=== PATIENT | male | born 1955 | race Caucasian/White ===

== ENCOUNTER 2021-09-09 07:54 | Outpatient (CLI) | payer OTHER, SELFPAY ==
--- NOTE | ~2021-09-09 | XR_ITS ---
XR abdomen/kub 1V DATE: 09/09/2021 08:13 INDICATION: Kidney calculus TECHNIQUE: AP projection, 2 views COMPARISON: None FINDINGS: An approximately 11 cm mass overlies the lower pole left kidney, possibly a large left lucian l cyst. Consider ultrasound or CT examination for further evaluation. Opacity 5 mm calcification overlying the lower pole right kidney, likely a lower pole right renal mikey cified calculus. Surgical clips, right upper quadrant, consistent with cholecystectomy. The psoas shadows are intact. No evidence of bowel obstruction. Included skeletal structures are unremarkable. IMPRESSION: Probable 5 mm lower pole right renal calcified calculus 11 cm mass overlying left mid abdomen, very possibly a large lower pole left renal cyst. Consider ult rasound or CT imaging Status post cholecystectomy Reviewed, dictated and finalized at [facility]. Reviewed, dictated and finalized at location [facility]. IMPRESSION: Probable 5 mm lower pole right renal calcified calculus 11 cm mass overlying left mid abdomen, very possibly a large lower pole left re nal cyst. Consider ultrasound or CT imaging Status post cholecystectomy
== END 2021-09-09 07:55 | disposition home or self-care (01) ==
LOC: ANHIMG 07:58
PROVIDERS: PCP Internal Medicine; Visit Provider Urology
DX: N20.0 Calculus of kidney (principal); Z90.49 Acquired absence of other specified parts of digestive tract
CPT/HCPCS: 74018

== ENCOUNTER 2022-09-07 10:00 | Outpatient (RCR) | payer OTHER, SELFPAY ==
--- NOTE | 2022-08-10 14:57 | OPREHPOC ---
Outpatient Therapy Plan of Care This is a Multidisciplinary Plan of Care that may contain components documented by all disciplines (PT, OT, and ST.) PT Problem 1 PT Problem #1 Knowledge Deficit PT Goal 1 Goal Independent with HEP Target Visit 6 PT Problem 2 PT Problem #2 Impaired Sensation PT Goal 1 Goal centralization of symptoms to the back Target Visit 6 PT Problem 3 PT Problem #3 Impaired Flexibility PT Goal 1 Goal RANJANA HS -25 degrees Target Visit 6 PT Problem 4 PT Problem #4 Impaired Strength PT Goal 1 Goal able to hold a plank with good form for 30 seconds Target Visit 6
--- NOTE | 2022-08-10 14:57 | PTOPEVAL1 ---
Assessment and note entered by Sagar Alvarado, PT Evaluation Information Diagnosis Lumbar radiculopathy Onset 27 years ago exacerbation 1 week ago Subjective Information Patient reports having a L1 fracture from an 8 foot drop 27 years ago resulting in him wearing a brace for 2 months, but no surgical interventions. Patient has occasional exacerbations of the back injury causing radiating symptoms going down the RLE usually only to the lateral mid thigh, but last week was having shooting pain going down to mid calf. Patient seen by doctor and given a steroid dose pack which has helped. Is having an MRI tonight to check for degenerative disc disease and or possible impingement. Patient usually has stiffness in the back first thing in the morning, but loosens up as he walks around and moves. Reported Pain Level Pain Score 0: Self Report Assessment PT Clinical Summary Neo is a 66 year old male coming into the clinic with a diagnosis of lumbar radiculopathy. He has tightness throughout the lumbar and thoracic region. Physical therapy will work with the patient on stretching and core progressions. Having MRI tonight which results my change direction of therapy. Manual and modalities as needed for pain. Plan of Care Interventions Electrical Stimulation,Gait Training,Hot Pack/Cold Pack,Manual Therapy,Mechanical Traction,Neuro Re- education,Patient/Caregiver Education,Therapeutic Activities,Therapeutic Exercise,Ultrasound PT Services Indicated Yes Treatment Frequency and 1-2x/wk for 4 weeks Duration These treatments will address the objective and functional deficits as defined above. The patient will be advanced safely and appropriately in order for the patient to progress towards his/her prior level of function. Additional exercises will be introduced and as well as a comprehensive home exercise program upon discharge, if needed, ?to ensure carryover of functional gains achieved in the clinic. This treatment plan has been reviewed and agreement upon by the patient.
--- NOTE | 2022-09-07 11:43 | PTOPDC ---
Assessment and note entered by Sagar Alvarado, PT Evaluation Information Assessment Status Discharge Diagnosis Lumbar radiculopathy Onset 27 years ago exacerbation 6 week ago Subjective Information Patient reports no pain going down the leg since going on the [employer] trip to [place]. Still has some numbness on the R outer thigh. Is seeing his primary doctor in about two weeks and has an appointment with a neurosurgeon on October 11. Patient reports besides the trip to [place] his has been faithful with HEP. Reported Pain Level Pain Score 0: Self Report Assessment PT Clinical Summary Neo is a 66 year old male coming into the clinic with a diagnosis of Lumbar Radiculopathy. He was evaluated on 08/10/22 and attended 7 sessions. He has met his strength goal, but not his flexibility or centralization goal. Patient is okay with being discharged from formal physical therapy and continue with just his HEP. Reports no questions about plan of care or HEP. Plan of Care PT Services Indicated No
== END 2022-09-08 13:20 | disposition home or self-care (01) ==
LOC: ANHPT 10:00
PROVIDERS: PCP Internal Medicine; Visit Provider Internal Medicine
DX: M54.16 Radiculopathy, lumbar region (principal)
CPT/HCPCS: 97110; 97112; 97140; 97161

== ENCOUNTER 2023-01-22 05:44 | Emergency (ER) | payer MEDICARE, SELFPAY ==
[2023-01-22] VITALS (7 sets, daily range): BP systolic 130–163; BP diastolic 77–87; PULSE 87–112; RESP 18–22; TEMP 36.3; O2SAT 95–100
--- NOTE | ~2023-01-22 | XR_ITS ---
Lumbosacral Spine: AP and lateral views Clinical History: Pain Findings: The normal lordotic curve is maintained. There is moderate compression fracture of L1, and minimal anterior wedging deformities of T12 and L2. There is 4 mm retrolisthesis of L2 over L3. There is moderate to severe facet joint arthropathy throughout the lumbar spine. There is minimal degenera tive disc change. The intervertebral disc spaces are preserved. The sacroiliac joints are normally o utlined. Impression: Moderate L1 compression fracture and mild T12 and L2 compression fractures, somewhat age indeterminat e, though likely chronic. 4 mm retrolisthesis of L2 over L3. Extensive facet joint degenerative change of the lumbar spine. Reviewed, dictated and finalized at location [facility]. HALMIC LENS INSPECTOR Impression: Moderate L1 compression fracture and mild T12 and L2 compression fractures, bong ewhat age indeterminate, though likely chronic. 4 mm retrolisthesis of L2 over L3. Extensive facet joint degenerative change of the lumbar spine.
--- NOTE | ~2023-01-22 | XR_ITS ---
AP view of the pelvis and AP and lateral views of the right hip Clinical history: Pain Findings: No acute fracture or dislocation is seen. Osseous alignment is anatomic. Bilateral hip and SI joint spaces are preserved. Soft tissues are unremarkable. Impression: No significant abnormality is seen. Reviewed, dictated and finalized at [facility]. PHYSICAL SCIENTIST Impression: No significant abnormality is seen.
--- NOTE | 2023-01-22 07:08 | PC.NURSE ---
Report given to CECILIA Anthony
[2023-01-22] MEDS: KETOROLAC 30 MG/ML VIAL (*BKC) IV PUSH (07:31)
[2023-01-22] MEDS: SODIUM CHLORIDE 0.9% IV 1,000 ML 999 ML IV CONT (07:31)
[2023-01-22] MEDS: diazePAM INJ (*CRX) 10 MG/2 ML SYRINGE 5 MG IV PUSH (07:32)
--- NOTE | 2023-01-22 07:35 | ED.EXTPRO ---
HPI - Extremity Problem General Chief complaint: Extremity Problem,Nontraumatic Stated complaint: LEFT HIP PAIN - NONTRAUMATIC Time Seen by Provider: 01/22/23 06:59 History of Present Illness HPI Narrative: Patient is a 67-year-old male who presents ER with right-sided hip pain. Patient has been having pain over the last couple weeks. He had a steroid injection by interventional pain management 3 days ago. He was supposed to stay off his leg for the weekend however he decided to go work at [employer] and unsure. Due to his increased activity he woke up early this morning with severe pain in his right leg radiating down to the foot. No numbness. Denies saddle anesthesia. Reports chronic weak stream due to BPH. No fevers or chills or sweats. No redness or swelling to the area. No direct trauma. Related Data Home Medications Medication Instructions Recorded Confirmed aspirin 81 mg tablet,delayed 81 mg PO DAILY 02/27/22 02/27/22 release (Adult Aspirin Regimen) methylcellulose (laxative) 500 mg 500 mg PO BID 02/27/22 02/27/22 tablet (Fiber Laxative (methylcellulose)) olmesartan 20 mg tablet 20 mg PO DAILY 02/27/22 02/27/22 pantoprazole 40 mg tablet,delayed 40 mg PO QAM 02/27/22 02/27/22 release potassium citrate 15 mEq (1,620 15 meq PO BID 02/27/22 02/27/22 mg) tablet,extended release simvastatin 40 mg tablet 40 mg PO DAILY 02/27/22 02/27/22 tadalafil 5 mg tablet 5 mg PO DAILY 02/27/22 02/27/22 Allergies Allergy/AdvReac Type Severity Reaction Status Date / Time No Known Allergies Allergy Unverified 02/27/22 12:53 Review of Systems Constitutional: Constitutional: Denies chills and Denies fever(s) Musculoskeletal: Musculoskeletal: Denies back pain, Reports arthralgias, Denies joint swelling and Denies muscle cramps Integumentary/Breasts: Skin/Breast: Denies erythema and Denies rash Neurologic: Denies focal weakness, Denies numbness and Denies weakness PMFSH Past Medical History Medical History (Updated 01/22/23 @ 09:48 by Dave Cool MD) Hypertension Surgical History Surgical History (Updated 01/22/23 @ 07:42 by Dave Cool MD) No pertinent past surgical history Family History Family History Father Hypertension Heart disease Social History Social History (Updated 02/27/22 @ 12:55 by Pau Kee CMA) Smoking status: Never smoker Alcohol intake: never Substance use: never Lack of Transportation: No Lack of Food: Never True Current Housing: I Have Housing Concerned About Future Housing: No Difficulty Paying Gas/Electric Bills: No Difficulty Paying for Meds: No Currently Unemployed: No Education: Bachelor's Degree Difficulty w/ Childcare or Family Care: No Exam Narrative: GENERAL: Well-appearing, well-nourished, and in no acute distress. HEAD: Normocephalic, atraumatic. ENT: Mucous membranes moist. CHEST: Clear to auscultation. No respiratory distress. HEART: Regular rate and rhythm. Normal peripheral pulses. EXTREMITIES: Normal range of motion. No edema. Pain at the right hip with range of motion which is not limited. Neurovascular intact. SKIN: Warm, dry, no rash. NEURO: Alert and oriented x3. PSYCH: Normal mood and affect. Course Course Emergency Course: Patient with difficulty ambulating after Valium and Toradol due to pain and unable to sit. Patient then received morphine and pain went down to 3/10. Discharged with Medrol Dosepak as well as cyclobenzaprine and some Maud for breakthrough pain. Needs to follow-up with PCP and take it easy. Vital Signs Vital signs: Vital Signs Temperature 97.4 F L 01/22/23 05:50 Pulse Rate 112 H 01/22/23 05:50 Respiratory Rate 22 H 01/22/23 05:50 Blood Pressure 146/84 H 01/22/23 05:50 Pulse Oximetry 100 01/22/23 05:50 Temperature 97.4 F L 01/22/23 05:50 Pulse Rate 101 H 01/22/23 09:34 Re
[2023-01-22] MEDS: MORPHINE SULFATE (*CRX) 4 MG/ML INJ IV PUSH (08:52)
== END 2023-01-22 10:03 | disposition home or self-care (01) ==
PROVIDERS: Emergency Provider Emergency Medicine; PCP Internal Medicine
DX: M25.551 Pain in right hip (principal); I10 Essential (primary) hypertension; N40.1 Benign prostatic hyperplasia with lower urinary tract symptoms; R39.12 Poor urinary stream; Z79.82 Long term (current) use of aspirin; M48.55XA Collapsed vertebra, not elsewhere classified, thoracolumbar region, initial encounter for fracture
CPT/HCPCS: 72100; 73502; 96361; 96374; 96375; 99284; J1885; J2270; J3360; J7030

== ENCOUNTER 2023-01-31 10:15 | Outpatient (CLI) | payer MEDICARE, SELFPAY ==
--- NOTE | ~2023-01-31 | CT_ITS ---
EXAMINATION: CT lumbar spine wo con DATE: 01/31/2023 10:44 INDICATION: Spinal stenosis of the lumbar region with neurogenic claudication. TECHNIQUE: Computed tomography (CT) of the lumbar spine was performed without intravenous contrast. A utomated exposure control and iterative reconstruction technique were employed. The dose-length produ ct was 1330.37 mGy-cm. COMPARISON: Lumbar spine radiographs 01/22/2023 FINDINGS: There are changes of cholecystectomy. Partially visualized is a cyst in left kidney measuri ng greater than 8 cm. There is 7 degrees dextrocurvature of thoracolumbar spine. There is 3 mm retrol isthesis of L2 on L3. There is mild chronic anterior wedging of T11-L2 vertebral bodies. There are br idging endplate osteophytes from T10 to L1, consistent with diffuse idiopathic skeletal hyperostosis (DISH). There is mildly decreased disc height at L1-L2 and moderately decreased disc height at L2-L3, L3-L4, L4-L5, and L5-S1. 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 The following disc levels are specifica lly discussed: L1-L2: The disc is bulging. There is severe bilateral facet joint osteoarthritis. There is mild bilat eral neural foraminal stenosis. There is no central canal stenosis. L2-L3: The disc is bulging. There is severe bilateral facet joint osteoarthritis. There is moderate b ilateral neural foraminal stenosis. There is mild central canal stenosis. L3-L4: The disc is bulging. There is severe right and mild left facet joint osteoarthritis. There is moderate bilateral neural foraminal stenosis. There is mild central canal stenosis. L4-L5: The disc is bulging. There is severe bilateral facet joint osteoarthritis. There is moderate b ilateral neural foraminal stenosis. There is moderate central canal stenosis. L5-S1: The disc is bulging. There is severe bilateral facet joint osteoarthritis. There is mild bilat eral neural foraminal stenosis. There is mild central canal stenosis. IMPRESSION: 1. Moderate lumbar spondylosis. Reviewed, dictated and finalized at location [facility]. R INSTALLER
== END 2023-01-31 10:16 | disposition home or self-care (01) ==
PROVIDERS: PCP Internal Medicine
DX: M48.062 Spinal stenosis, lumbar region with neurogenic claudication (principal); M43.06 Spondylolysis, lumbar region
CPT/HCPCS: 72131

== ENCOUNTER 2023-05-01 10:01 | Inpatient (IN) | payer MEDICARE, SELFPAY ==
--- NOTE | ~2023-05-01 | CT_ITS ---
EXAMINATION: CT abdomen pelvis w con DATE: 05/01/2023 19:10 INDICATION: Generalized abdominal pain. Nausea and vomiting. TECHNIQUE: Computed tomography (CT) of the abdomen and pelvis was performed with 100 mL Omnipaque 350 intravenous contrast. Automated exposure control and iterative reconstruction technique were employe d. The dose-length product was 1460.64 mGy-cm. COMPARISON: None. FINDINGS: The visualized portions of the lung bases demonstrate mild atelectasis. No pleural effusion . The heart size is normal. No pericardial effusion. There is diffuse hepatic steatosis. There are ch anges of cholecystectomy. The spleen, pancreas, and adrenal glands are normal. There are cysts in the kidneys measuring up to 10.1 cm on the left. There is a 3 mm stone in left kidney. The prostate is s everely enlarged. There is diverticulosis of the colon without evidence of diverticulitis. The append ix is fluid-filled and contains fecaliths. The appendix is dilated to 17 mm and demonstrates surround ing fat stranding, consistent with appendicitis. There is mild aortic atherosclerosis. There is a sma ll sliding hiatal hernia. There are no pathologically enlarged lymph nodes. There is no free intraper itoneal fluid. There is mild chronic anterior wedging of multiple vertebral bodies. There is moderate lumbar spondylosis. There are bridging endplate osteophytes at multiple levels in the spine, consist ent with diffuse idiopathic skeletal hyperostosis (DISH). IMPRESSION: 1. Acute appendicitis. Reviewed, dictated and finalized at location E. STRIAL GREEN SYSTEMS DESIGNER IMPRESSION: 1. Acute appendicitis.
[2023-05-01 10:04] VITALS: BP 124/66; PULSE 104; RESP 16; TEMP 36.8; O2SAT 100
--- NOTE | 2023-05-01 10:07 | ECG_ITS ---
Measurements Intervals Bernard Rate: 100 P: 18 MA: 184 QRS: 20 QRSD: 87 T: 22 QT: 321 QTc: 414 Interpretive Statements SINUS TACHYCARDIA POSSIBLE LEFT ATRIAL ENLARGEMENT [-0.1mV P WAVE IN V1/V2] NO PREVIOUS ECG AVAILABLE FOR COMPARISON Electronically Signed On 05-01-2023 15:45:35 HAND FLATWORK FINISHER by Aleida Nj M.D.
[2023-05-01 15:02] VITALS: BP 117/67; PULSE 105; RESP 18; O2SAT 96
--- NOTE | 2023-05-01 15:10 | ED.ABDPAIN ---
HPI - Abdominal Pain General Chief Complaint: Abdominal Pain <Katina Peter PA-C - Last Filed: 05/02/23 09:45> Stated Complaint: influenza A positive, abd pain <Katina Peter PA-C - Last Filed: 05/02/23 09:45> Time Seen by Provider: 05/01/23 15:00 <Katina Peter PA-C - Last Filed: 05/02/23 09:45> Focused HPI: This is a 67 year old male that presents to the ER for abdominal pain. Ongoing since yesterday. Associated with fever, chills, vomiting and diarrhea. He was seen at Urgent care and diagnosed with influenza. Sent to the ER for further evaluation of his abdominal pain. GENERAL: Well-appearing, well-nourished, and in no acute distress. HEAD: Normocephalic, atraumatic. CHEST: Clear to auscultation. No respiratory distress. HEART: Regular rate and rhythm. GASTROINTESTINAL: Tender to palpation in the mid abdomen, without guarding NEURO: Alert and oriented x3. Patient screened in triage and initial orders placed. Additional care and disposition to be based upon diagnostic testing and treatment. <Katina Peter PA-C - Last Filed: 05/02/23 09:45> History of Present Illness HPI narrative: 67yo male with PMH hypertension and kidney stones. Patient had diarrheal stool on Sunday and Sunday. No stools since then (has not returned to normal caliber stools). When they were occurring they were non-bloody. Starting last night at 9pm, he developed chills and shaking in addition to non bloody emesis. In addition he has whole body aches. He is also having upper abdominal pain. He was seen at urgent care and diagnosed with Influenza A but advised to come to the ED due to the degree of abdominal distension and tenderness he had in the lower quadrants. He also had chest pain/tightness but only when vomiting. No significant cardiac history/doesn't follow with a interactive media specialist. He did have a heart catheterization performed years ago that was reportedly normal. No stents. Urgent care give him Theraflu x1 and gave a dose of anti-nausea medication. He had a fever of 100.4F this morning for which he took Tylenol but that was his last dose. No prior abdominal surgeries. <Agnes aCsas MD - Last Filed: 05/02/23 00:59> Related Data Home Medications: Home Medications Medication Instructions Recorded Confirmed aspirin 81 mg tablet,delayed 81 mg PO DAILY 02/27/22 05/01/23 release (Adult Aspirin Regimen) methylcellulose (laxative) 500 mg 500 mg PO BID 02/27/22 05/01/23 tablet (Fiber Laxative (methylcellulose)) olmesartan 20 mg tablet 20 mg PO DAILY 02/27/22 05/02/23 pantoprazole 40 mg tablet,delayed 40 mg PO QAM 02/27/22 05/01/23 release simvastatin 40 mg tablet 40 mg PO DAILY 02/27/22 05/01/23 tadalafil 5 mg tablet 5 mg PO DAILY 02/27/22 05/01/23 <Katina Peter PA-C - Last Filed: 05/02/23 09:45> Allergies/Adverse Reactions: Allergies Allergy/AdvReac Type Severity Reaction Status Date / Time No Known Allergies Allergy Unverified 05/01/23 15:30 <Katina Peter PA-C - Last Filed: 05/02/23 09:45> Review of Systems Review of Systems: CONSTITUTIONAL: Reports fever, chills RESPIRATORY: Denies cough GASTROINTESTINAL: Reports abdominal pain, nausea, vomiting, and diarrhea. <Katina Peter PA-C - Last Filed: 05/02/23 09:45> All systems reviewed & are unremarkable except as noted in HPI and below <Katina Peter PA-C - Last Filed: 05/02/23 09:45> [facility] Past Medical History Medical History: Medical History Hyperlipidemia Hypertension Kidney stones <Katina Peter PA-C - Last Filed: 05/02/23 09:45> Surgical History Surgical History: Surgical History History of laparoscopic cholecystectomy <Katina Peter PA-C - Last Filed: 05/02/23 09:45> Family History Family History: Family History (Reviewed 05/02/23 @ 09:38 by Hattie Cespedes
[2023-05-01] MEDS: PANTOPRAZOLE SODIUM IV 40 MG VIAL IV PUSH (15:30)
[2023-05-01] MEDS: SODIUM CHLORIDE 0.9% IV 500 ML 999 ML IV CONT (15:30)
[2023-05-01 15:37] LABS: Hemoglobin 13.8 g/dL (14.0-18.0); Mean Corpuscular HGB Conc 32.1 g/dl (32-36); Mean Corpuscular Hemoglobin 28.8 pg (26-34); Mean Corpuscular Volume 89.6 fl (80-100); Mean Platelet Volume 10.6 fl (7.4-10.4); Platelet Count Result 256 k/mm3 (150-375); Red Cell Distribution Width 13.8 % (11.5-14.5); White Blood Count 16.1 K/mm3 (4.5-10.0)
[2023-05-01 15:44] LABS: Appearance Urine Clear (Clear); Bacteria Urine None Seen /hpf; Bilirubin Urine 1+ (Negative); Blood Urine Trace (Negative); Color Urine Dark Yellow (Yellow); Glucose Urine UA Negative (Negative); Ketones Urine Trace mg/dL (Negative); Leukocyte Esterase Ur Negative LEU/UL (Negative); Nitrate Urine Negative (Negative); Protein Urine Trace mg/dL (Negative); Specific Grav Ur 1.024 (1.001-1.035); Squamous Epithelial Cell Urine None seen /hpf (Few); WBC Urine 0-5 /hpf; pH Urine 5.5 (5.0-9.0)
[2023-05-01 15:45] LABS: Add Urine Microscopic? YES
[2023-05-01 16:01] LABS: Band Neutrophils Percent 16 % (0-6); Monocytes Absolute Manual 0.32 K/mm3 (0.1-0.90); Monocytes Percent Manual 2 % (3-9); Neutrophils Absolute Manual 14.97 K/mm3 (1.3-6.7); Neutrophils Percent Manual 77 % (46-73); Platelet Estimate Adequate (Adequate); Schistocytes None Seen (NORMAL); Total Cells Counted 100
--- NOTE | 2023-05-01 17:40 | ED.ABDPAIN ---
HPI - Abdominal Pain General Chief Complaint: Abdominal Pain Stated Complaint: influenza A positive, abd pain Time Seen by Provider: 05/01/23 15:00 Related Data Home Medications Medication Instructions Recorded Confirmed aspirin 81 mg tablet,delayed 81 mg PO DAILY 02/27/22 05/01/23 release (Adult Aspirin Regimen) methylcellulose (laxative) 500 mg 500 mg PO BID 02/27/22 05/01/23 tablet (Fiber Laxative (methylcellulose)) olmesartan 20 mg tablet 20 mg PO DAILY 02/27/22 02/27/22 pantoprazole 40 mg tablet,delayed 40 mg PO QAM 02/27/22 05/01/23 release simvastatin 40 mg tablet 40 mg PO DAILY 02/27/22 05/01/23 tadalafil 5 mg tablet 5 mg PO DAILY 02/27/22 05/01/23 Allergies Allergy/AdvReac Type Severity Reaction Status Date / Time No Known Allergies Allergy Unverified 05/01/23 15:30 [facility] Past Medical History Medical History Hypertension Kidney stones Surgical History Surgical History (Updated 01/22/23 @ 07:42 by Dave Cool MD) No pertinent past surgical history Family History Family History Father Hypertension Heart disease Social History Social History (Updated 02/27/22 @ 12:55 by Pau Kee CMA) Smoking status: Never smoker Alcohol intake: never Substance use: never Substance use type: does not use Do You Feel Safe in your Home?: Yes Lack of Transportation: No Lack of Food: Never True Current Housing: I Have Housing Concerned About Future Housing: No Difficulty Paying Gas/Electric Bills: No Difficulty Paying for Meds: No Currently Unemployed: No Education: High School Diploma/GED Difficulty w/ Childcare or Family Care: No Spiritual care concerns: No Exam Narrative: GENERAL: Well-appearing, well-nourished, and in no acute distress. HEAD: Normocephalic, atraumatic. EYES: Non injected, non icteric ENT: Nares clear, no rhinorrhea or epistaxis. NECK: Supple. CHEST: Clear to auscultation. No respiratory distress. HEART: Regular rate and rhythm. . ABDOMEN: Soft, nondistended. EXTREMITIES: Normal range of motion. No edema. SKIN: Warm, dry, no rash. NEURO: No focal deficits. Alert and oriented x3. PSYCH: Normal mood and affect. Course Vital Signs Vital signs: Vital Signs Temperature 98.3 F 05/01/23 10:04 Pulse Rate 104 H 05/01/23 10:04 Respiratory Rate 16 05/01/23 10:04 Blood Pressure 124/66 05/01/23 10:04 Pulse Oximetry 100 05/01/23 10:04 Oxygen Delivery Room Air 05/01/23 10:04 Temperature 99.4 F 05/01/23 21:20 Pulse Rate 114 H 05/01/23 21:20 Respiratory Rate 20 05/01/23 21:20 Blood Pressure 128/71 05/01/23 21:20 Pulse Oximetry 94 05/01/23 21:20 Oxygen Delivery Room Air 05/01/23 15:02 MDM - Abdominal Pain Lab Data 05/01/23 15:21 05/01/23 18:06 Labs: Lab Results 05/01/23 05/01/23 05/01/23 Range/Units 15:21 18:06 19:40 WBC 16.1 H (4.5-10.0) K/mm3 RBC 4.80 (4.6-6.20) M/mm3 Hgb 13.8 L (14.0-18.0) g/dL Hct 43.0 (42.0-52.0) % MCV 89.6 (80-100) fl MCH 28.8 (26-34) pg MCHC 32.1 (32-36) g/dl RDW 13.8 (11.5-14.5) % Plt Count 256 (150-375) k/mm3 MPV 10.6 H (7.4-10.4) fl Immature Gran % (Auto) Not Reportable Neut % (Auto) Not Reportable Lymph % (Auto) Not Reportable Gordon % (Auto) Not Reportable Eos % (Auto) Not Reportable Baso % (Auto) Not Reportable Lymph # (Auto) Not Reportable Gordon # (Auto) Not Reportable Eos # (Auto) Not Reportable Baso # (Auto) Not Reportable Abs Immat Gran (auto) Not Reportable Absolute Neuts (auto) Not Reportable Absolute Nucleated RBC Not Reportable Total Counted 100 Neutrophils % (Manual) 77 H (46-73) % Band Neutrophils % 16 H (0-6) % Lymphocytes % (Manual) 5.0 L (18-44
[2023-05-01] MEDS: SODIUM CHLORIDE 0.9% IV 1,000 ML 999 ML IV CONT (18:09)
[2023-05-01] MEDS: ONDANSETRON INJ 4 MG/2 ML VIAL IV PUSH ×2 (18:09→20:21)
[2023-05-01] MEDS: MORPHINE SULFATE (*CRX) 4 MG/ML INJ IV PUSH (18:10)
[2023-05-01 18:31] LABS: Alanine Aminotransferase 45 U/L (6-50); Albumin Level 4.3 g/dL (3.5-5.1); Alkaline Phosphatase 83 U/L (38-126); Anion Gap 5 mmol/L (8-16); Aspartate Amino Transferase 49 U/L (17-59); Bilirubin,Total 1.5 mg/dL (0.2-1.3); Blood Urea Nitrogen 25 mg/dL (9-20); Calcium 9.1 mg/dL (8.4-10.2); Carbon Dioxide 30 mmol/L (22-30); Chloride 102 mmol/L (98-107); Estimated CRCL calculation 70 ml/min; Estimated Glomerular Filt Rate > 60; Glucose 125 mg/dL (65-110); Lipase 49 U/L (23-300); Sodium 137 mmol/L (137-145)
[2023-05-01 18:35] VITALS: BP 132/72; PULSE 108; RESP 17; O2SAT 97
[2023-05-01 18:46] LABS: Troponin I < 0.012 ng/mL (0.000-0.034)
[2023-05-01 18:53] LABS: Magnesium 1.9 mg/dL (1.6-2.3)
[2023-05-01] MEDS: LACTATED RINGERS 1,000 ML 125 ML IV CONT (20:12)
[2023-05-01] MEDS: PIPERACILLIN/TAZ 4.5G/NS 100ML 4.5 GM/100 ML BAG IVPB (20:13)
[2023-05-01 20:20] LABS: Influenza A QL RT-PCR Negative (Negative); Influenza B QL RT-PCR Negative (Negative); RSV RNA, RT-PCR Negative (Negative); SARS-CoV-2 RNA PCR Negative (Negative)
[2023-05-01] MEDS: ACETAMINOPHEN 325 MG TABLET 650 MG PO (20:20)
[2023-05-01] MEDS: HYDROcodone/acetaminophen (*CRX) 5-325 MG TABLET 1 TAB PO (20:20)
[2023-05-01 20:28] VITALS: TEMP 37.3
[2023-05-01 21:20] VITALS: BP 128/71; PULSE 114; RESP 20; TEMP 37.4; O2SAT 94
[2023-05-01 21:34] VITALS: BMI 35.6
[2023-05-02] VITALS (12 sets, daily range): BP systolic 113–160; BP diastolic 70–90; PULSE 86–110; RESP 12–94; TEMP 36.4–37.5; O2SAT 93–100
--- NOTE | 2023-05-02 00:56 | ADMGEN ---
This patient, eNo Montesinos, was admitted to [facility] Surg Room 303-01. Patient/family oriented to hospital policies and general routines including ID bracelet, bed and alarms, visiting hours, pain management, procedures, bathroom and other care routines, personal items, smoking policy, room service/diet, and visiting hours. Information on how to activate the Rapid Response Team has been discussed. Patient/Family are encouraged to report perceived risks to care and to ask questions if they do not understand what they are told or what they should do.
[2023-05-02] MEDS: HYDROcodone/acetaminophen (*CRX) 5-325 MG TABLET 1 TAB PO ×2 (01:00→20:11)
--- NOTE | 2023-05-02 09:37 | PM.IMHP ---
H&P: HPI History of Present Illness Date/Time: 05/02/23 09:37 Chief Complaint: Abdominal pain, vomiting Narrative: This is a 67-year-old man who was admitted for acute appendicitis. He reports having diarrhea three days ago (Sunday) and then developing nausea, vomiting, chills, and abdominal pain the following day (Sunday, 2 days ago). He describes his pain as cramping and generalized pointing to his central abdomen. He feels like his pain has become more severe across his lower abdomen. He went to an urgent care yesterday and reportedly tested positive for Influenza. Due to his abdominal pain and distention, he was referred to the ER for further evaluation. In the ER, labs significant for a WBC count 16,000. CT showed evidence of acute appendicitis, no evidence of perforation or abscess. There were noted to be fecaliths in the appendix. He was admitted and made NPO. Started on IV fluids. Given one dose of IV Zosyn in the ER. The patient is now seen on the medical floor. He is comfortable and is not requiring any analgesics this morning. He had one [place] last night for his abdominal pain. His only previous abdominal surgery was a laparoscopic cholecystectomy. Review of Systems Review of Systems: All systems reviewed & are unremarkable except as noted in HPI and below PMFSH Past Medical History Medical History (Updated 05/02/23 @ 09:49 by MÓNICA Meraz) Hyperlipidemia Hypertension Kidney stones Lumbar radiculopathy Surgical History Surgical History History of laparoscopic cholecystectomy Family History Family History Father Hypertension Heart disease Social History Social History Smoking status: Never smoker Alcohol intake: never Substance use: never Substance use type: does not use Do You Feel Safe in your Home?: Yes Lack of Transportation: No Lack of Food: Never True Current Housing: I Have Housing Concerned About Future Housing: No Difficulty Paying Gas/Electric Bills: No Difficulty Paying for Meds: No Currently Unemployed: No Education: High School Diploma/GED Difficulty w/ Childcare or Family Care: No Spiritual care concerns: No Meds Home Medications and Allergies Home Medications Medication Instructions Recorded Confirmed Type aspirin 81 mg tablet,delayed 81 mg PO DAILY 02/27/22 05/01/23 History release (Adult Aspirin Regimen) methylcellulose (laxative) 500 mg 500 mg PO BID 02/27/22 05/01/23 History tablet (Fiber Laxative (methylcellulose)) olmesartan 20 mg tablet 20 mg PO DAILY 02/27/22 05/02/23 History pantoprazole 40 mg tablet,delayed 40 mg PO QAM 02/27/22 05/01/23 History release simvastatin 40 mg tablet 40 mg PO DAILY 02/27/22 05/01/23 History tadalafil 5 mg tablet 5 mg PO DAILY 02/27/22 05/01/23 History azelastine 137 mcg (0.1 %) nasal See Rx Instructions .Route 07/19/22 05/01/23 Rx spray aerosol .COMPLEX #30 mL hydrocodone 5 mg-acetaminophen 325 1 tablet PO Q6H PRN pain #12 tabs 01/22/23 05/01/23 Rx mg tablet methylprednisolone 4 mg tablets in See Rx Instructions PO .COMPLEX 01/22/23 05/01/23 Rx a dose pack (Medrol (Murray)) #21 ea Allergies Allergy/AdvReac Type Severity Reaction Status Date / Time No Known Allergies Allergy Unverified 05/01/23 15:30 Vital Signs Vital Signs - 24 hr 05/01/23 10:04 05/01/23 15:02 05/01/23 18:35 Temperature 98.3 F Pulse Rate 104 H 105 H 108 H Respiratory Rate 16 18 17 Blood Pressure 124/66 117/67 132/72 Pulse Oximetry 100 96 97 Oxygen Delivery Room Air Room Air 05/01/23 20:28 05/01/23 21:20 05/02/23 06:00 Temperature 99.2 F 99.4 F 99.5 F Pulse Rate 114 H 92 Respiratory Rate 20 94 H Blood Pressure 128/71 113/75 Pulse Oximetry 94 93 Oxygen Delivery Exam Const: General: comfortable and no acute dis
[2023-05-02] MEDS: PIPERACILLN/TAZ 3.375GM/NS50ML 3.375 GM/50 ML BAG IVPB ×3 (11:00→22:41)
--- NOTE | 2023-05-02 13:20 | WPDHPUPDATE1 ---
History and Physical Update Update Date/Time: 05/02/23 13:20 History and Physical has been reviewed, including an updated exam of the patient. There are NO changes in the patient's condition. Risks, benefits, and alternatives have been discussed and questions answered. Patient agrees to proceed with procedure.
[2023-05-02] MEDS: LACTATED RINGERS 1,000 ML 30 ML IV CONT ×2 (13:30→15:22)
--- NOTE | 2023-05-02 14:07 | WPDANESEPPF ---
Anes - Initial Pre Proc Eval Procedure: Operation Date: 05/02/23 15:30 Proposed Procedures p Laparoscopic Appendectomy - John Thompson DO Date/Time: 05/02/23 14:07 Surgeon: John Thompson DO Pre Op Diagnosis: Appendicitis, Influenza Patient Data Age: 67 Gender: M Height: 1.75 m Weight: 109.7 kg Last Vital Signs Temp 37.5 C 05/02/23 06:00 Pulse 92 05/02/23 06:00 Resp 94 H 05/02/23 06:00 BP 113/75 05/02/23 06:00 Pulse Ox 93 05/02/23 06:00 O2 Del Method Room Air 05/01/23 15:02 Allergies Allergy/AdvReac Type Severity Reaction Status Date / Time No Known Allergies Allergy Unverified 05/02/23 13:55 Home Medications Medication Instructions Recorded Confirmed Type aspirin 81 mg tablet,delayed 81 mg PO DAILY 02/27/22 05/01/23 History release (Adult Aspirin Regimen) methylcellulose (laxative) 500 mg 500 mg PO BID 02/27/22 05/01/23 History tablet (Fiber Laxative (methylcellulose)) olmesartan 20 mg tablet 20 mg PO DAILY 02/27/22 05/02/23 History pantoprazole 40 mg tablet,delayed 40 mg PO QAM 02/27/22 05/01/23 History release simvastatin 40 mg tablet 40 mg PO DAILY 02/27/22 05/01/23 History tadalafil 5 mg tablet 5 mg PO DAILY 02/27/22 05/01/23 History azelastine 137 mcg (0.1 %) nasal See Rx Instructions .Route 07/19/22 05/01/23 Rx spray aerosol .COMPLEX #30 mL hydrocodone 5 mg-acetaminophen 325 1 tablet PO Q6H PRN pain #12 tabs 01/22/23 05/01/23 Rx mg tablet methylprednisolone 4 mg tablets in See Rx Instructions PO .COMPLEX 01/22/23 05/01/23 Rx a dose pack (Medrol (Murray)) #21 ea Laboratory Tests 05/01/23 05/01/23 05/01/23 15:21 18:06 19:40 WBC 16.1 H K/mm3 (4.5-10.0) RBC 4.80 M/mm3 (4.6-6.20) Hgb 13.8 L g/dL (14.0-18.0) Hct 43.0 % (42.0-52.0) MCV 89.6 fl (80-100) MCH 28.8 pg (26-34) MCHC 32.1 g/dl (32-36) RDW 13.8 % (11.5-14.5) Plt Count 256 k/mm3 (150-375) MPV 10.6 H fl (7.4-10.4) Immature Gran % (Auto) Not Reportable Neut % (Auto) Not Reportable Lymph % (Auto) Not Reportable Cocke % (Auto) Not Reportable Eos % (Auto) Not Reportable Baso % (Auto) Not Reportable Lymph # (Auto) Not Reportable Cocke # (Auto) Not Reportable Eos # (Auto) Not Reportable Baso # (Auto) Not Reportable Abs Immat Gran (auto) Not Reportable Absolute Neuts (auto) Not Reportable Absolute Nucleated RBC Not Reportable Total Counted 100 Neutrophils % (Manual) 77 H % (46-73) Band Neutrophils % 16 H % (0-6) Lymphocytes % (Manual) 5.0 L % (18-44) Monocytes % (Manual) 2 L % (3-9) Nucleated RBC % Not Reportable Abs Neuts (Manual) 14.97 H K/mm3 (1.3-6.7) Abs Lymphs (Manual) 0.80 L K/mm3 (1.1-4.5) Abs Monocytes (Manual) 0.32 K/mm3 (0.1-0.90) Platelet Estimate Adequate (Adequate) Schistocytes None seen (NORMAL) Sodium 137 mmol/L (137-145) Potassium 4.0 mmol/L (3.4-5.0) Chloride 102 mmol/L (98-107) Carbon Dioxide 30 mmol/L (22-30) Anion Gap 5 L mmol/L (8-16) BUN 25 H mg/dL (9-20) Creatinine 1.10 mg/dL (0.7-1.3) Estim Creat Clear Calc 70 ml/min Estimated GFR > 60 (59 - ) Glucose 125 H mg/dL (65-110) Calcium 9.1 mg/dL (8.4-10.2) Magnesium 1.9 mg/dL (1.6-2.3) Total Bilirubin 1.5 H mg/dL (0.2-1.3) AST 49 U/L (17-59) ALT 45 U/L (6-50) Alkaline Phosphatase 83 U/L (38-126) Troponin I < 0.012 ng/mL (0.000-0.034) Total Protein 7.0 g/dL (6.3-8.2) Albumin 4.3 g/dL (3.5-5.1)
[2023-05-02] MEDS: BUPIVACAINE/EPINEPHRINE 0.5% 10 ML VIAL 30 ML INFILTRATE (14:49)
--- NOTE | 2023-05-02 15:09 | W.PM.PROC2 ---
Procedure Note - Detailed Date of Procedure 05/02/23 Pre-op Diagnosis Acute appendicitis Post-op Diagnosis Same Procedure Performed Laparoscopic appendectomy Surgeon John Thompson, DO Anesthesia General and Local (0.5% bupivicaine with epinephrine) Indications This is a 67-year-old man who presented with right lower quadrant pain for the past 2 days. He was experiencing pain with nausea vomiting and chills. His pain was progressively worsening and his entire lower abdomen felt tight. He presented to an urgent care and was found to have positive influenza a but due to the abdominal pain was sent to the emergency department for further workup. A CT did show evidence of acute appendicitis and his white blood count was elevated. Discussions were made with the patient about treatment options and decision was made to proceed with laparoscopic appendectomy, possible open. Findings Laparoscopic appendectomy was performed. The appendix appeared very dilated and was even showing some signs of possible early gangrene. The base of the appendix appeared healthy and viable. I did not see any clear evidence of perforation but there were some phlegmonous changes around the appendix. There is possibility early micro perforation. No other significant abnormalities were identified. The appendix was removed and sent to the lab for pathology. Description of Procedure Procedure as well as risks, benefits, and alternatives were explained to the patient. The patient agreed to proceed. Written consent was obtained and placed in chart prior to procedure. The patient was brought back to surgical suite. He was placed supine on operating table. Time-out was done to confirm the patient and procedure. The patient was then intubated by the Anesthesia Department. His abdomen was prepped and draped in sterile fashion using chlorhexidine prep. A 5 mm incision was made just to the left of the patient's umbilicus and a 5 mm Optiview trocar was advanced through the abdominal layers under direct visualization. Once inside the peritoneal cavity, carbon dioxide insufflation was used to create a pneumoperitoneum. The camera was inserted and the abdomen was inspected. No immediate abnormalities were identified. The patient was then placed in slight Trendelenburg position and rotated to the left. A 5 mm incision was made in the suprapubic region in midline and a 5 mm trocar was inserted under direct visualization. A 12 mm incision was made in the left lower quadrant and a 12 mm trocar was inserted under direct visualization. The right lower quadrant was carefully inspected. The cecum was identified and then this was traced back to the appendix. The appendix was identified and grasped at the mesoappendix and lifted anteriorly. Careful blunt dissection was carried out at the base of the appendix through the mesoappendix using a [place] grasper. An Endo-NICOLE 45 mm blue load stapler was then advanced across the base of the appendix and clamped and fired. A white reload was then clamped across the mesoappendix and fired. This freed up our appendix completely. It was then placed in an EndoCatch bag and removed through the left lower quadrant port. The staple lines were then inspected. Hemostasis appeared adequate and the staple lines appeared secure. The area was then irrigated with sterile saline. The pelvis was then carefully inspected and irrigated with sterile saline as well and the remainder of the abdomen was carefully inspected. The patient was then flattened out in bed. One final inspection was made around the abdominal cavity and no other abnormalities were seen. The left lower quadrant port was removed and a Armando-Eliana cone was used to approximate the fascia with an 0 Vicryl simple interrupted suture. The remaining ports were then removed under direct visualization. The camera was removed and the pneumoperitoneum was released. 0.5% bupivacaine with epinephrine was in
[2023-05-02] MEDS: fentaNYL CITRATE INJ (*CRX) 100 MCG/2 ML VIAL 25 MCG IV PUSH (15:42)
[2023-05-03] VITALS (7 sets, daily range): BP systolic 116–136; BP diastolic 66–84; PULSE 76–88; RESP 14–18; TEMP 36.6–37.1; O2SAT 93–98
[2023-05-03] MEDS: PIPERACILLN/TAZ 3.375GM/NS50ML 3.375 GM/50 ML BAG IVPB ×4 (03:00→21:08)
[2023-05-03] MEDS: ONDANSETRON INJ 4 MG/2 ML VIAL IV PUSH ×4 (09:39→22:02)
--- NOTE | 2023-05-03 09:43 | PM.PNGS ---
Progress Note: A&P Assessment and Plan (1) Acute appendicitis: Qualifiers: Acute appendicitis type: unspecified acute appendicitis type Qualified Code(s): K35.80 - Unspecified acute appendicitis Code(s): K35.80 - Unspecified acute appendicitis Status: Acute Assessment and Plan: Continue IV Zosyn Advancing diet, but patient having nausea/vomiting this AM. Will restart IV fluids. Ileus might be developing, will reassess and repeat labs tomorrow. (2) Hypertension: Code(s): I10 - Essential (primary) hypertension Status: Chronic (3) Hyperlipidemia: Code(s): E78.5 - Hyperlipidemia, unspecified Status: Chronic (4) GERD (gastroesophageal reflux disease): Code(s): K21.9 - Gastro-esophageal reflux disease without esophagitis Status: Acute Subjective Subjective Date/Time Seen: 05/03/23 09:43 Interval history: Patient had nausea and vomiting this AM. Pain improved. No fevers. Exam GI: Inspection: non-distended, incision (intact with glue) and obesity GI Palp: Yes Soft to palpation, Yes Tenderness to palpation present (GI) (incisional) and No Guarding due to palpation present (GI) Objective Data Vital Signs Vital Signs: Vital Signs - 24 hr 05/02/23 15:22 05/02/23 15:50 05/02/23 16:05 Temperature 36.4 C Pulse Rate 110 H 108 H 107 H Respiratory Rate 14 14 14 Blood Pressure 160/86 H 156/85 H 152/80 H Pulse Oximetry 99 100 95 Oxygen Delivery Simple Face Mask Room Air Nasal Cannula Oxygen Flow Rate 8 2 05/02/23 16:20 05/02/23 15:35 05/02/23 16:32 Temperature 36.4 C Pulse Rate 107 H 109 H 100 Respiratory Rate 12 16 16 Blood Pressure 141/84 H 136/90 142/70 H Pulse Oximetry 95 96 94 Oxygen Delivery Nasal Cannula Simple Face Mask Oxygen Flow Rate 2 8 05/02/23 16:47 05/02/23 17:17 05/02/23 18:17 Temperature 37.0 C 36.9 C 37.3 C Pulse Rate 97 95 91 Respiratory Rate 18 18 18 Blood Pressure 140/72 145/78 H 151/87 H Pulse Oximetry 93 95 93 Oxygen Delivery Oxygen Flow Rate 05/02/23 21:46 05/02/23 20:00 05/03/23 04:00 Temperature 37.0 C 37.0 C Pulse Rate 86 76 Respiratory Rate 18 18 Blood Pressure 136/88 123/81 Pulse Oximetry 95 95 97 Oxygen Delivery Room Air Oxygen Flow Rate 05/03/23 08:00 Temperature 36.8 C Pulse Rate 79 Respiratory Rate 16 Blood Pressure 116/66 Pulse Oximetry 93 Oxygen Delivery Oxygen Flow Rate Intake/Output Intake/Output: Intake & Output 04/30/23 05/01/23 05/02/23 05/03/23 23:59 23:59 23:59 23:59 Intake Total 1500 922 0 Output Total 300 Balance 1500 622 0 Meds/Results Medications: Active Medications Generic Name Dose Route Start Last Admin Trade Name Freq PRN Reason Stop Dose Admin Acetaminophen 650 mg 05/01/23 19:42 05/01/23 20:20 Acetaminophen 325 Mg Tablet PO 650 mg Q4H PRN Administration Mild Pain (1-3) or Fever Hydrocodone Bitart/Acetaminophen 1 tab 05/02/23 16:32 05/02/23 20:11 Hydrocodone/Acetaminophen (*Crx) 5-325 Mg Tablet PO 1 tab Q4H PRN Administration Pain Rated 4-6 Hydrocodone Bitart/Acetaminophen 1 tab 05/02/23 16:32 Hydrocodone/Acetaminophen (*Crx) 10-325 Mg Tablet PO Q4H PRN Pain Rated 7-10 Aspirin 81 mg 05/03/23 09:00 Aspirin 81 Mg Enteric Tablet PO DAILY [facility] Enoxaparin Sodium 40 mg 05/03/23 09:00 Enoxaparin 40 Mg/0.4 Ml Syringe SUB-Q DAILY [facility] Piperacillin/Tazobactam/Dextrose 3.375 gm in 50 mls @ 100 mls/hr 05/02/23 10:00 05/03/23 03:00 Zosyn 3.375 Gm/Ns 50 Ml IVPB 100 mls/hr Q6H OZZY Administration Lactated Ringer's 1,000 mls @ 100 mls/hr 05/03/23 09:45 Lr - Lactated Ringers Iv IV CONT .Q10H [facility] Morphine Sulfate 2 mg 05/02/23 16:32 Morphine Sulfate (*Crx) 2 Mg/Ml Inj IV PUSH Q2H PRN Pain Rated 4-6 Morphine Sulfate 4 mg 05/02/23 16:32 Morphine Sulfate (*Crx) 4 Mg/Ml Inj IV PUSH Q2H PRN Pain Rated 7-10
[2023-05-03] MEDS: LACTATED RINGERS 1,000 ML 100 ML IV CONT (10:03)
[2023-05-03] MEDS: MORPHINE SULFATE (*CRX) 2 MG/ML INJ IV PUSH ×2 (11:58→15:19)
--- NOTE | 2023-05-03 14:05 | WPDANESPN ---
Anes - Prog Note Post-Op Date/Time: 05/03/23 14:05 Cardiovascular status: normal Respiratory status: normal Airway patency: baseline Mental status: baseline Post-Op hydration status: normal Vital Signs: Last Vital Signs Temp 97.8 F 05/03/23 12:00 Pulse 88 05/03/23 12:00 Resp 16 05/03/23 12:00 BP 136/84 05/03/23 12:00 Pulse Ox 97 05/03/23 12:00 O2 Del Method Room Air 05/02/23 20:00 O2 Flow Rate 2 05/02/23 16:20 Pain Score (VAS): 0/10 I/O: Intake & Output 05/02/23 05/03/23 05/03/23 23:59 07:59 15:59 Intake Total 772 50 90 Balance 772 50 90 Laboratory Tests 05/01/23 15:21 05/01/23 18:06 Post-procedural complaints: none Patient Feedback: Patient satisfied with anesthetic care.
[2023-05-03] MEDS: HYDROcodone/acetaminophen (*CRX) 5-325 MG TABLET 1 TAB PO (22:02)
[2023-05-04] MEDS: LACTATED RINGERS 1,000 ML 100 ML IV CONT ×2 (00:12→08:55)
[2023-05-04 04:00] VITALS: BP 125/77; PULSE 82; RESP 18; TEMP 36.8; O2SAT 97
[2023-05-04] MEDS: ONDANSETRON INJ 4 MG/2 ML VIAL IV PUSH ×2 (04:16→08:47)
[2023-05-04] MEDS: PIPERACILLN/TAZ 3.375GM/NS50ML 3.375 GM/50 ML BAG IVPB ×2 (04:17→09:33)
[2023-05-04 06:24] LABS: Hematocrit 36.4 % (42.0-52.0); Hemoglobin 11.5 g/dL (14.0-18.0); Mean Corpuscular HGB Conc 31.6 g/dl (32-36); Mean Corpuscular Hemoglobin 28.4 pg (26-34); Mean Corpuscular Volume 89.9 fl (80-100); Mean Platelet Volume 10.6 fl (7.4-10.4); Platelet Count Result 225 k/mm3 (150-375); Red Blood Count 4.05 M/mm3 (4.6-6.20); Red Cell Distribution Width 13.6 % (11.5-14.5); White Blood Count 9.5 K/mm3 (4.5-10.0)
[2023-05-04 06:30] LABS: Anion Gap 4 mmol/L (8-16); Blood Urea Nitrogen 19 mg/dL (9-20); Calcium 8.7 mg/dL (8.4-10.2); Carbon Dioxide 27 mmol/L (22-30); Chloride 105 mmol/L (98-107); Estimated CRCL calculation 79 ml/min; Estimated Glomerular Filt Rate > 60; Glucose 104 mg/dL (65-110); Potassium 3.7 mmol/L (3.4-5.0); Sodium 136 mmol/L (137-145)
[2023-05-04] MEDS: SIMVASTATIN 20 MG TABLET 40 MG PO (08:47)
[2023-05-04] MEDS: ASPIRIN 81 MG ENTERIC TABLET PO (08:47)
[2023-05-04] MEDS: PANTOPRAZOLE 40 MG TABLET PO (08:47)
[2023-05-04] MEDS: OLMESARTAN MEDOXOMIL 20 MG TABLET PO (08:48)
[2023-05-04 09:30] VITALS: O2SAT 93
[2023-05-04 14:00] VITALS: BP 126/72; PULSE 80; RESP 20; TEMP 36.8; O2SAT 95
--- NOTE | 2023-05-04 15:37 | PCCCNOTE ---
On 05/04/23, the student, [Eloina Engel], provided care and completed [facility] documentation on this patient. I have reviewed the student's documentation and agree with the findings.
[2023-05-04 16:00] VITALS: O2SAT 95
--- NOTE | 2023-05-04 16:24 | PM.DS ---
DS: Admitting Diagnosis Discharge Date 05/04/2023 Admitting Diagnosis Acute appendicitis DS: Discharge Diagnosis Discharge Diagnosis (1) Acute appendicitis: Qualifiers: Acute appendicitis type: with localized peritonitis Appendicitis gangrene presence: with gangrene Appendicitis perforation presence: with perforation Appendicitis abscess presence: without abscess Qualified Code(s): K35.32 - Acute appendicitis with perforation, localized peritonitis, and gangrene, without abscess Code(s): K35.80 - Unspecified acute appendicitis Status: Acute Assessment and Plan: Pathology shows evidence of acute perforated appendicitis (2) Hypertension: Qualifiers: Hypertension type: primary hypertension Qualified Code(s): I10 - Essential (primary) hypertension Code(s): I10 - Essential (primary) hypertension Status: Chronic DS: Summary Hospital Course Reason for hospitalization: Acute appendicitis Hospital Course: This is a 67-year-old man who presented to the emergency department on 05/01/2023 with right lower quadrant pain and weakness. He was noted to have an elevated white blood count and CT showed evidence of acute appendicitis. He was started on IV antibiotics and admitted for further treatment. He underwent laparoscopic appendectomy on 05/02/2023. Surgery was uncomplicated and he was returned to the surgical floor postoperatively. His diet and activity were slowly advanced as tolerated. Patient was experiencing nausea and vomiting on postop day 1 therefore IV fluids were resumed. IV antibiotics were continued as well. On postop day 2 his white blood count was normal and he was tolerating a regular diet. His nausea and vomiting had resolved. He was remaining hemodynamically stable. Pathology did show evidence of acute perforated appendicitis. He will be discharged on oral antibiotics as well as pain meds. Status at Discharge Functional status at discharge: independent ambulation Overall status at discharge: patient is progressing back to baseline Time Spent with Patient Time attestation: Total time spent providing and/or coordinating discharge services: Time spent: Less than 30 minutes Exam Const: General: comfortable, no acute distress and alert Resp: Effort & Inspection: normal respiratory effort Auscultation: clear to auscultation bilaterally Cardio: Rate: regular rate Rhythm: regular rhythm GI: Inspection: non-distended and incision (Intact with glue) GI Palp: Yes Soft to palpation, Yes Tenderness to palpation present (GI) (Incisional) and No Guarding due to palpation present (GI) Auscultation: normal bowel sounds DS: Data Data Completed and Pending Completed studies during hospitalization: Pending at discharge 05/02/23 14:52 Surgical [PTH] Routine Final Diagnosis Appendix, appendectomy: - Ruptured acute appendicitis with periappendicitis - No evidence of malignancy. Reviewed and Electronically Signed by: Alexander Betancur MD 05/04/23 0942 Labs on day of discharge: Labs from last 24 hours 05/04/23 05:25 WBC 9.5 RBC 4.05 L Hgb 11.5 L Hct 36.4 L MCV 89.9 MCH 28.4 MCHC 31.6 L RDW 13.6 Plt Count 225 MPV 10.6 H Sodium 136 L Potassium 3.7 Chloride 105 Carbon Dioxide 27 Anion Gap 4 L BUN 19 Creatinine 1.00 Estim Creat Clear Calc 79 Estimated GFR > 60 Glucose 104 Calcium 8.7 Imaging Radiologist's impression: ITS Impressions Abdomen/Pelvis CT 05/01/23 19:10 IMPRESSION: 1. Acute appendicitis. Discharge Plan Discharge Attending physician on discharge: John Thompson Consulting providers: Katina Peter Discharging Clinician: John Thompson Patient Disposition: Home, Self-Care Activity: other - see discharge instructions Diet: regular Wound Care Instructions: other - see discharge instructions Discharge Instructions: DISCHARGE INSTRUCTION SHEET FOR HER
== END 2023-05-04 17:06 | disposition home or self-care (01) | DRG 399 ==
LOC: ANHED 18:37 → ANH3MEDSUR 20:41
PROVIDERS: Physician Assistant; Admitting Provider Surgery; Emergency Provider Student in an Organized Health Care Education/Training Program; PCP Internal Medicine; Visit Provider Surgery
PROC: 0DTJ4ZZ Resection of Appendix, Percutaneous Endoscopic Approach (ICD-10-PCS; CPT 44970; principal; 2023-05-02 15:30)
DX: K35.32 Acute appendicitis with perforation, localized peritonitis, and gangrene, without abscess (principal); I10 Essential (primary) hypertension; E78.5 Hyperlipidemia, unspecified; M54.16 Radiculopathy, lumbar region; Z20.822 Contact with and (suspected) exposure to COVID-19; Z87.442 Personal history of urinary calculi; Z79.82 Long term (current) use of aspirin
CPT/HCPCS: 36415; 74177; 80048; 80053; 81001; 83690; 83735; 84484; 85025; 85027; 87637; 88304; 93005; 96361; 96374; 96375; 99285; A9270; C9113; J1100; J2250; J2270; J2405; J2543; J2704; J3010; J7030; J7040; J7120; Q9967

== ENCOUNTER 2024-04-08 00:09 | Day surgery (SDC) | payer MEDICARE, SELFPAY ==
[2024-03-27 10:00] VITALS: BMI 34.2
--- OUTSIDE RECORDS SUMMARY | 2024-04-08 00:12 | XMS_ITS | Referral Summary ---
Author Organization [facility] Address [address] [place] [address] Care Team Providers Care Electrician Sound Name Role Phone Unavailable Primary Care Provider Unavailabl e Source Comments [facility],non-owned Affiliates and Associated Physician Practices is amultiple site organization consisting of ambulatory clinics and hospital sitesin [place], [place], [place] and [place]. This disclosure is being madepursuant to the Care Everywhere program and may not contain all information available regarding this patient. Last updated 17.[facility] [employer] Social History Tobacco Use Types Packs/Day Years Used Date Smoking Tobacco: Never Assessed Sex and Gender Information Value Date Recorded Sex Assigned at Not on file Gender Identity Not on file Sexual Orientation Not on file Plan of Treatment Not on file
--- OUTSIDE RECORDS SUMMARY | 2024-04-08 00:12 | XMS_ITS | Patient Health Summary ---
Author Organization [facility] Address [address] [place] [address] Care Team Providers Care Top Lift Trimmer Name Role Phone Unavailable Primary Care Provider Unavailabl e Note from [facility],non-owned Affiliates and Associated Physician Practices is amultiple site organization consisting of ambulatory clinics and hospital sitesin [place], [place], [place] and [place]. This disclosure is being madepursuant to the Care Everywhere program and may not contain all information available regarding this patient. Last updated 17.[facility] Social History Tobacco Use Types Packs/Day Years Used Date Smoking Tobacco: Never Assessed Sex and Gender Information Value Date Recorded Sex Assigned at Not on file Gender Identity Not on file Sexual Orientation Not on file
--- OUTSIDE RECORDS SUMMARY | 2024-04-08 00:12 | XMS_ITS | Clinical Summary ---
Author Organization [facility] Address [address] [place] [address] Care Team Providers Care Supervisor Instrument Mechanics Name Role Phone Unavailable Primary Care Provider Unavailabl e Source Comments [facility] [employer],non-owned Affiliates and Associated Physician Practices is amultiple site organization consisting of ambulatory clinics and hospital sitesin [place], [place], [place] and [place]. This disclosure is being madepursuant to the Care Everywhere program and may not contain all information available regarding this patient. Last updated 17.[facility] [employer] Social History Tobacco Use Types Packs/Day Years Used Date Smoking Tobacco: Never Assessed Sex and Gender Information Value Date Recorded Sex Assigned at Not on file Gender Identity Not on file Sexual Orientation Not on file Plan of Treatment Health Maintenance Due Date Last Done Comments COLOGUARD (AGES 45-75) - COL ON CA SCREENING 1957 COLON MONITORING 1957 COLONOSCOPY - COLON CA SCREENING 1957 CT COLONOGRAPHY - COLON CA SCREENING 1957 Colorectal Cancer Screening 1957 FIT - COLON CA SCREENING 1957 FLEX SIG - COLON CA SCREENING 1957 LIPID TESTING 1957 HEPATITIS C SCREENING 10/19/1975 DTAP/TDAP/TD VACCINES (1 - Tdap) 1976 PNEUMOCOCCAL VACCINE 50+ (1 of 1 - PCV) 10/24/2007 ZOSTER VACCINE (1 of 2) 10/24/2007 COVID-19 VACCINE ( - 2023-2 5 season) 2023 INFLUENZA VACCINE (#1) 2023 DEPRESSION SCREENING 03/12/2024 MEDICARE AWV ? CALENDAR YEAR 2024 Respiratory Syncytial Virus (RSV) Vaccine Pt: or over 60 yrs (1 - 1-dose 75+ series) 2032 HEPATITIS B VACCINE Aged Out No longe r eligible based on patient's age to complete this topic HIB VACCINE Aged Out No longer eligi ble based on patient's age to complete this topic HPV VACCINE Aged Out No longer eligi ble based on patient's age to complete this topic MENINGOCOCCAL (Group B) VACCINE Aged Out No longer eligible based on patient's age to complete this topic MENINGOCOCCAL VACCINE Aged Out No marysol nick eligible based on patient's age to complete this topic
--- OUTSIDE RECORDS SUMMARY | 2024-04-08 00:12 | XMS_ITS | Clinical Summary ---
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
[2024-04-08 06:23] VITALS: BP 139/78; PULSE 79; RESP 18; TEMP 36.1; O2SAT 97
--- NOTE | 2024-04-08 06:29 | P.PNAN_ITS ---
Anes - Initial Pre Proc Eval Procedure: Operation Date: 04/08/24 07:30 Proposed Procedures p Esophagogastroduodenoscopy - Tim Strong MD Date/Time: 04/08/24 06:29 Surgeon: Tim Strong MD Pre Op Diagnosis: Dysphagia Patient Data Age: 68 Gender: M Height: 1.75 m Weight: 108.6 kg Last Vital Signs Temp 97 F L 04/08/24 06:23 Pulse 79 04/08/24 06:23 Resp 18 04/08/24 06:23 BP 139/78 04/08/24 06:23 Pulse Ox 97 04/08/24 06:23 O2 Del Method Room Air 04/08/24 06:23 Allergies Allergy/AdvReac Type Severity Reaction Status Date / Time No Known Allergies Allergy Verified 04/08/24 06:21 Home Medications ?Medication ?Instructions ?Recorded ?Confirmed ?Type aspirin 81 mg tablet,delayed 81 mg PO DAILY 02/27/22 04/08/24 History release (Adult Aspirin Regimen) methylcellulose (laxative) 500 mg 500 mg PO BID 02/27/22 04/08/24 History tablet (Fiber Laxative (methylcellulose)) olmesartan 20 mg tablet 20 mg PO DAILY 02/27/22 03/27/24 History pantoprazole 40 mg tablet,delayed 40 mg PO QAM 02/27/22 04/08/24 History release simvastatin 40 mg tablet 40 mg PO DAILY 02/27/22 04/08/24 History tadalafil 5 mg tablet 5 mg PO DAILY PRN ED 02/27/22 03/27/24 History azelastine 137 mcg (0.1 %) nasal See Rx Instructions .Route 07/19/22 04/08/24 Rx spray .COMPLEX #30 mL glucosamine 750 mg-chondroit 100 1 tablet PO BID 03/27/24 04/08/24 History mg-msm-D3 25 dqf-zecb-yix bor tablet grape seed extract 100 mg capsule 100 mg PO DAILY 03/27/24 04/08/24 History jaaxlrrw-cvp-bcdmk acid 0.4 1 tablet PO DAILY 03/27/24 04/08/24 History mg-lycopene 300 mcg-lutein 250 mcg tablet (Centrum Silver) omega-3 fatty acids 1,250 mg 1,200 mg PO DAILY 03/27/24 03/27/24 History capsule Patient hx anesthesia problems: none Family hx anesthesia problems: none Results Review: All pre-operative results and documents have been reviewed as part of the pre- operative evaluation. [facility] Past Medical History Medical History Lumbar radiculopathy Hyperlipidemia Kidney stones Hypertension Surgical History Surgical History History of laparoscopic appendectomy 05/02/23 Dr. John Thompsno History of laparoscopic cholecystectomy Family History Family History Father Hypertension Heart disease Social History Social History Smoking status: Never smoker Alcohol intake: never Substance use: never Substance use type: does not use Do You Feel Safe in your Home?: Yes Lack of Transportation: No Lack of Food: Never True Current Housing: I Have Housing Concerned About Future Housing: No Difficulty Paying Gas/Electric Bills: No Difficulty Paying for Meds: No Currently Unemployed: No Education: High School Diploma/GED Difficulty w/ Childcare or Family Care: No Living arrangements: with family Spiritual care concerns: No Anes - Eval Final PreProcedure Day of Procedure 04/08/24 06:29 Patient weight: obese Heart: regular rate and rhythm Lungs: clear to auscultation Airway: Mallampati scale class III Neurological: alert and oriented Last oral intake: >/= 8 hours ASA classification: III Emergent: no Anesthetic plan: proceed Anesthesia type and monitoring: general GIVS and standard monitoring Results Review: All pre-operative results and documents have been reviewed as part of the pre- operative evaluation. HTN, hyperlipidemia. Pt has dysphagia. 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 Informed Consent: The patient's anesthetic plan and its attendant risks and benefits were discussed with the patient/family/POA. Questions were solicited and answers provided to the satisfaction of the patient/family/POA.
[2024-04-08] MEDS: LACTATED RINGERS 1,000 ML 150 ML IV CONT (06:36)
--- NOTE | 2024-04-08 07:31 | PM.HPGS ---
History of Present Illness History of Present Illness Consent: Risks, benefits, and alternatives have been discussed and questions answered. Patient agrees to proceed with procedure. Chief complaint: Dysphagia Narrative: Neo Montesinos is a 68 year old male with dysphagia, egd about 10 years ago Review of Systems Review of Systems: All systems reviewed & are unremarkable except as noted in HPI and below PMFSH Past Medical History Medical History (Updated 04/08/24 @ 07:31 by Tim Strong MD) Dysphagia Lumbar radiculopathy Hyperlipidemia Kidney stones Hypertension Surgical History Surgical History History of laparoscopic appendectomy 05/02/23 Dr. John Thompson History of laparoscopic cholecystectomy Family History Family History Father Hypertension Heart disease Social History Social History Smoking status: Never smoker Alcohol intake: never Substance use: never Substance use type: does not use Do You Feel Safe in your Home?: Yes Lack of Transportation: No Lack of Food: Never True Current Housing: I Have Housing Concerned About Future Housing: No Difficulty Paying Gas/Electric Bills: No Difficulty Paying for Meds: No Currently Unemployed: No Education: High School Diploma/GED Difficulty w/ Childcare or Family Care: No Living arrangements: with family Spiritual care concerns: No Meds Home Medications and Allergies Home Medications ?Medication ?Instructions ?Recorded ?Confirmed ?Type aspirin 81 mg tablet,delayed 81 mg PO DAILY 02/27/22 04/08/24 History release (Adult Aspirin Regimen) methylcellulose (laxative) 500 mg 500 mg PO BID 02/27/22 04/08/24 History tablet (Fiber Laxative (methylcellulose)) olmesartan 20 mg tablet 20 mg PO DAILY 02/27/22 03/27/24 History pantoprazole 40 mg tablet,delayed 40 mg PO QAM 02/27/22 04/08/24 History release simvastatin 40 mg tablet 40 mg PO DAILY 02/27/22 04/08/24 History tadalafil 5 mg tablet 5 mg PO DAILY PRN ED 02/27/22 03/27/24 History azelastine 137 mcg (0.1 %) nasal See Rx Instructions .Route 05/10/23 01/28/25 Rx spray .COMPLEX #30 mL glucosamine 750 mg-chondroit 100 1 tablet PO BID 03/27/24 04/08/24 History mg-msm-D3 25 jfm-bfpq-nxm bor tablet grape seed extract 100 mg capsule 100 mg PO DAILY 03/27/24 04/08/24 History nkpehhht-ezd-nsksv acid 0.4 1 tablet PO DAILY 03/27/24 04/08/24 History mg-lycopene 300 mcg-lutein 250 mcg tablet (Centrum Silver) omega-3 fatty acids 1,250 mg 1,200 mg PO DAILY 03/27/24 03/27/24 History capsule Allergies Allergy/AdvReac Type Severity Reaction Status Date / Time No Known Allergies Allergy Verified 04/08/24 06:21 Vital Signs Vital Signs - 24 hr 04/08/24 06:23 Temperature 97 F L Pulse Rate 79 Respiratory Rate 18 Blood Pressure 139/78 Pulse Oximetry 97 Oxygen Delivery Room Air Exam Const: General: comfortable and no acute distress HENMT: Face/Nose/Sinus: Normal nares present Eyes: General: appearance normal, both eyes and all related structures Neck: Neck: no JVD Resp: Auscultation: clear to auscultation bilaterally Cardio: Rate: regular rate Rhythm: regular rhythm GI: Inspection: non-distended GI Palp: Yes Soft to palpation Skin: General skin exam: normal color Neuro: General: gait normal Speech: normal speech Extrem: General: normal to inspection Psych: Mental Status: mental status grossly normal Assessment and Plan Assessment and plan (1) Dysphagia: Code(s): R13.10 - Dysphagia, unspecified Status: Acute Assessment and Plan: egd
[2024-04-08] MEDS: BENZOCAINE (*SP) 60 ML SPRAY CAN (HURRICAINE) 1 SPRAY MUCOUS MEM (07:33)
[2024-04-08 07:47] VITALS: BP 106/72; PULSE 72; RESP 18; O2SAT 96
[2024-04-08 07:57] VITALS: BP 125/71; PULSE 69; RESP 16; O2SAT 98
[2024-04-08 08:07] VITALS: BP 124/78; PULSE 66; RESP 16; O2SAT 98
== END 2024-04-08 08:20 | disposition home or self-care (01) ==
PROVIDERS: PCP Internal Medicine; Visit Provider Internal Medicine Gastroenterology
PROC: 0DJ08ZZ Inspection of Upper Intestinal Tract, Via Natural or Artificial Opening Endoscopic (ICD-10-PCS; CPT 43249; principal; 2024-04-08 07:30)
DX: K22.2 Esophageal obstruction (principal); K20.90 Esophagitis, unspecified without bleeding; K29.50 Unspecified chronic gastritis without bleeding; K44.9 Diaphragmatic hernia without obstruction or gangrene; K29.70 Gastritis, unspecified, without bleeding; E66.9 Obesity, unspecified; Z68.35 Body mass index [BMI] 35.0-35.9, adult
CPT/HCPCS: 43249; 43239; 88305; C1726; J2003; J2704; J7120

== ENCOUNTER 2024-07-24 20:33 | Observation (INO) | payer MEDICARE, SELFPAY ==
--- NOTE | ~2024-07-24 | XR_ITS ---
XR chest 1V portable Ordering provider: Jesus Valverde History: 68 years Male with . chest pain . Comparison: None. FINDINGS: MEDIASTINUM: The cardiac silhouette is not enlarged. LUNGS: No effusions or pneumothorax. Opacification in the left upper lobe area. Prominent markings bi laterally. OTHER: No free air under the diaphragm. Degenerative changes of IMPRESSION: Left upper lobe pneumonia. Reviewed, dictated and finalized at location A. IMPRESSION: Left upper lobe pneumonia.
--- NOTE | ~2024-07-24 | CT_ITS ---
CT chest abdomen pelvis w con Ordering provider: Jesus Valverde History: 68 years Male with . Upper GIB, hx esophageal procedures . Comparison: May 01, 2023 Technique: CT chest with IV contrast. CT abdomen and pelvis CT abdomen and pelvis with IV and with or al contrast. Radiation reduction technique utilized.The dose-length product was 1318.59 mGy-cm. 100 mL Omnipaque 3 50 was given IV. FINDINGS: CHEST: --VISUALIZED THORACIC INLET: Left thyroid nodule. Ultrasound evaluation advised. --MEDIASTINUM: Aorta/coronary arteries: Mild atheromatous disease. Heart/other: The heart is not enlarged. Lymph nodes: No mediastinal or hilar adenopathy. --LUNGS: Atelectatic changes in the lingula. No pulmonary nodules or masses. No infiltrates or effusi ons. No pneumothorax. --MUSCULOSKELETAL: Soft tissues: The superficial soft tissues are normal. Bones: Age appropriate degenerative changes of the spine. Kyphosis. ABDOMEN/PELVIS: --MUSCULOSKELETAL: Bones: Age appropriate degenerative changes of the spine. No suspicious bony lytic or sclerotic lesio ns. Bilateral sacroiliacs. Superficial soft tissues: The superficial soft tissues are normal. --UPPER ABDOMINAL ORGANS: Liver: Hepatomegaly. Gallbladder: Status post cholecystectomy. Spleen: Normal. Stomach/duodenum: Sliding hiatus hernia. Area of increased density is seen in the distal esophagus wh ich may be a hematoma. This area measures 2.7 cm. Esophagoscopy is advised. Pancreas: Normal. Adrenals: Normal. Kidneys: Stones seen in the right kidney upper and lower pole. Cysts seen in the right kidney mid and lower pole. Small cyst seen in the left kidney upper pole. Large cyst is seen in the left kidney lower pole which measures 9.4 x 10 cm. --PELVIC ORGANS: The bladder is underfilled. No bladder stones. Enlarged prostate. --BOWEL AND MESENTERY: Colon: No evidence of diverticulitis. No evidence of appendicitis.. Small Bowel: Normal. No obstruction. Peritoneum/mesentery: No free air or free fluid. No mesenteric lymphadenopathy. --RETROPERITONEUM: Mild atheromatous disease of the abdominal aorta. Separate origin of the hepatic and splenic arteries. No retroperitoneal lymphadenopathy. IMPRESSION: CHEST: 1. No acute cardiopulmonary pathology. 2. Minimal atelectatic changes in the lingula. ABDOMEN/PELVIS: 1. Soft tissue density in the distal esophagus which may indicate hematoma. Mass cannot be excluded. Esophagoscopy is advised. 2. Right kidney stones. Bilateral renal cysts with the largest in the left kidney lower pole. 3. No evidence of appendicitis, diverticulitis or intestinal obstruction. 4. Hepatomegaly. Reviewed, dictated and finalized at location A. IMPRESSION: CHEST: 1. No acute cardiopulmonary pathology. 2. Minimal atelectatic changes in the lingula. ABDOMEN/PELVIS: 1. Soft tissue density in the distal esophagus which may indicate hematoma. Ma ss cannot be excluded. Esophagoscopy is advised. 2. Right kidney stones. Bilateral renal cysts with the largest in the left kid cub[place] lower pole. 3. No evidence of appendicitis, diverticulitis or intestinal obstruction. 4. Hepatomegaly.
--- OUTSIDE RECORDS SUMMARY | 2024-07-24 20:36 | XMS_ITS | Referral Summary ---
Author Organization [facility] Address [address] [place] [address] Care Team Providers Care Patient Assistant Name Role Phone Yash Parker MD Primary Care Provider [phone] Berto Bartholomew MD Unavailable Encounters Date Type Department Care Team Description 04/30/2024 Telephone [facility] [address] [place] [address] [place] [address] Yash Parker MD PA SCOPOLAMINE 04/28/2024 Orders Only [facility] [address] [place] [address] Yash Parker MD from Last 3 Months Allergies No known active allergies Medications tadalafiL (CIALIS) 5 mg tabletIndications :Erectile Dysfunction,benig n prostatic hyperplasia with lower urinary tract sx Take 1 tablet (5 mg total) by mouth every morning 1 Active ifbnsundjfr-crb-l agnesium-vitC capsuleIndication s:supplement Take 2 tablet/capsule by mouth 2 (two) times a day Active mjnha-5-kfz-epa-d pa-fish oil 1,050-1,200 mg capsuleIndication s:supplement Take 1 capsule by mouth 2 (two) times a day Active CALCIUM POLYCARBOPHIL ORALIndications:c onstipation,diarr hea,supplement Take 2 tablets by mouth 2 (two) times a day Active multivitamin capsuleIndication s:Vitamin Deficiency Prevention Take 1 capsule by mouth every morning Active grape seed extract 50 mg capsuleIndication s:supplement Take 200 mg by mouth every morning Active cetirizine (ZyrTEC) 10 mg tabletIndications :Allergic Rhinitis Take 1 tablet (10 mg total) by mouth every morning Active azelastine (ASTELIN) 137 mcg (0.1 %) nasal sprayIndications: Seasonal Allergic Rhinitis Administer 1 spray into each nostril nightly 3 Active ketoconazole (NIZORAL) 2 % creamIndications: skin rash Apply 1 Application topically as needed for irritation or rash 3 Active calcium carbonate (TUMS) 500 mg (200 mg elemental calcium) chewable tabletIndications :Heartburn Take 1 tablet/chew tab (500 mg total) by mouth as needed for indigestion or heartburn Active ibuprofen 200 mg tab/capIndication s:Pain Take 2 tablet/capsule (400 mg total) by mouth every 6 (six) hours as needed for pain Active acetaminophen (Tylenol Extra Strength) 500 mg tabletIndications :Pain Take 2 tablets (1,000 mg total) by mouth as needed for pain Active aspirin 81 mg enteric coated tabletIndications :prevention of thrombosis,heart health Take 1 tablet (81 mg total) by mouth nightly 4 Active scopolamine 1 mg over 3 days patch [address] 1 patch on the skin every third day as needed (nausea) 4 patch 2 5 Active olmesartan (BENICAR) 20 mg tablet TAKE 1 TABLET(20 MG) BY MOUTH DAILY 90 tablet [address] (PROTONIX) 40 mg EC tablet TAKE 1 TABLET(40 MG) BY MOUTH DAILY 90 tablet 1 5 Active simvastatin (ZOCOR) 40 mg tablet TAKE 1 TABLET BY MOUTH DAILY 90 tablet 1 5 Active Active Problems Problem Noted Date Diagnosed Date Spinal stenosis of lumbar re gion, unspecified whether neurogenic claudication present 06/06/2023 Spinal stenosis of lumbar region 03/06/2023 Elevated prostate specific antigen (PSA) 023 Overview (04/27/2022): Added automatically from request for surgery [id number] Kidney stone 09/20/2021 Overview (09/20/2021): Added automatically from request for surgery [id number] Immunizations Immunization Administration Dates Next Due Hep A, Adult 12/08/2005,06/09/2005 Hep B Vaccine 12/08/2005,07/18/2005,06/09/2005 Influenza, Quadrivalent, Antoinette l Culture-based MDCK, Antibiotic Free, Intramuscular 12/26/2018 Influenza, Quadrivalent, Rec ombinant, Egg Free, Preservative Free, Intramuscular 12/09/2019 Influenza, Quadrivalent, Spl it, Intramuscular 12/23/2015 Influenza, Quadrivalent, Spl it, Preservative Free, Intramuscular 12/06/2017,12/14/2016,12/24/2014 Influenza, Trivalent, IM (MDV) 12/16/2020,2012 Pneumococcal Conjugate Pcv20 12/13/2022 ZOSTER Recombinant 06/27/2018,04/23/2018 Social History Tobacco Use Types Packs/Day Years Used Date Smoking Tobacco: Never Passive Smoke Exposure: Never Smokeless Tobacco: Never Tobacco Cessation:Counseling Given: Not Answered Alcohol Use Standard Drinks/Week Comments Not Currently 0 (1 standard drink = 0.6 oz pur e alcohol) AUDIT-C Answer Date Recorded Q1: How often do you have a drink containing alcohol? Never 06/06/2023 Q2: How many drinks containi ng alcohol do you have on a typical day when you are drinking? Patient does not drink Q3: How often do you have si x or more drinks on one occasion? Never 06/06/2023 PHQ-2 Answer Date Recorded PHQ-2 Total Score (If total score is 3 or more points, staff should administer the PHQ-9) 0 04/21/2023 Personal Safety Answer Date Recorded Have you ever been in or are you currently in a harmful physical or emotional relationship or is someone making you feel afraid or unsafe? 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 Gender Identity Male 06/20/2023 4:08 PM CDT Sexual Orientation Not on file Last Filed Vital Signs Vital Sign Reading Time Taken Comments Blood Pressure 148/78 10/24/2023 11:20 AM CDT Pulse 74 10/24/2023 11:20 AM CDT Temperature 36.1 C (97 F) 06/06/2023 12:20 PM CDT Respiratory Rate 14 06/06/2023 1:00 PM CDT Oxygen Saturation 96% 06/06/2023 1:00 PM CDT Inhaled Oxygen Concentration - - Weight 107 kg (236 lb) 10/24/2023 11:20 AM CDT Height 175.3 cm (5' 9 ) 10/24/2023 11:20 AM CDT Body Mass Index 34.85 10/24/2023 11:20 AM CDT Plan of Treatment Not on file Procedures Procedure Name Priority Date/Time Associated Diagnosis Comments PSA DIAGNOSTIC Routine 04/14/2024 9:17 AM DOUGHNUT BATTER MIXER Essential hypertension Mixed hyperlipidemia Elevated prostate specific antigen (PSA) Anemia, unspecified type COLONOSCOPY Routine 02/10/2018 from Last 3 Months or Most Recently Relevant to Health Maintenance Results * (ABNORMAL) PSA diagnostic (04/14/2024 9:17 AM DOUGHNUT BATTER MIXER) PSA 5.7(H) 0.0 - 4.0 ng/mL [facility] - 01 Comment: Gabbi ECLIA methodology. According to the [place] [employer], Serum PSA should decrease and remain at undetectable levels after radical prostatectomy. The AUA defines biochemical recurrence as an initial PSA value 0.2 ng/mL or greater followed by a subsequent confirmatory PSA value 0.2 ng/mL or greater. Values obtained with different assay methods or kits cannot be used interchangeably. Results cannot be interpreted as absolute evidence of the presence or absence of malignant disease. Blood 04/14/2024 9:17 AM DOUGHNUT BATTER MIXER 04/14/2024 Narrative [facility] - 04/15/2024 12:33 PM DOUGHNUT BATTER MIXER Performed at: 01 - [facility] [id number] [place] Instructor: Arvind Olivier PhD, Phone: [phone] us Yash Parker MD LAB BLOOD ORDERABLES Final Re sult [facility] - 01 * Colonoscopy (02/10/2018) Anatomical Region Laterality Modality Other Narrative 02/10/2018 Pt reported he had colonoscopy 2years ago it was normal us Historical Provider ENDOSCOPY PROCEDURES Kristin l Result from Last 3 Months or Most Recently Relevant to Health Maintenance Additional Health Concerns Infection Onset Date Last 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 Infection Prevention will arrange screening. Please contact Infection Prevention. 11/07/2021 11/07/2021 Insurance AETNA MEDICARE [facility] [id number] [facility] MEDICARE AETNA MEDICARE Care Teams Patient Assistant Relationship Specialty Start Date End Date Yash Parker MD PCP - General Internal Medicine 02/11/20 Berto Bartholomew MD Consulting Physician Urology 11/07/21
--- OUTSIDE RECORDS SUMMARY | 2024-07-24 20:36 | XMS_ITS | Clinical Summary ---
Author Organization [facility] Address [address] [place] [address] Care Team Providers Care Telephone Assembler Name Role Phone Unavailable Primary Care Provider Unavailabl e Source Comments [facility],non-owned Affiliates and Associated Physician Practices is amultiple site organization consisting of ambulatory clinics and hospital sitesin [place], [place], [place] and [place]. This disclosure is being madepursuant to the Care Everywhere program and may not contain all information available regarding this patient. 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 Gender Identity Not on file Sexual Orientation [...] VACCINE ( - 2023-2 5 season) 2023 DEPRESSION SCREENING 03/12/2024 MEDICARE AWV CALENDAR YEAR 2024 INFLUENZA VACCINE (Season Ended) 2024 Respiratory Syncytial Virus (RSV) Vaccine Pt: [...] to complete this topic MENINGOCOCCAL (Group B) VACC INE SHARED DECISION-MAKING Aged Out No longer eligibl e based on patient's age to complete this topic MENINGOCOCCAL GROUPS A/C/Y/W VACCINE Aged Out No longer eligible b ased on patient's age to complete this topic Insurance AETNA MEDICARE ADV SELF PAY NO INSURANCE Member Subscriber Plan / Payer (Ef fective for All Dates) Name:Myra Montesinos Member ID:Not on file Relation to Subscriber:Not on file Name:MYRA MONTESINOS Subscriber ID:Not on file Address: [address] [place] [address] Payer ID:Not on file Group ID:Not on file Type:Self Pay Address: [place], [place] AETNA MEDICARE ADV SELF PAY NO INSURANCE Member Subscriber Plan / Payer (Ef fective for All Dates) Name:Myra Montesinos Member ID:Not on file Relation to Subscriber:Not on file Name:MYRA MONTESINOS Subscriber ID:Not on file Address: [address] [place] [address] Payer ID:Not on file Group ID:Not on file Type:Self Pay Address: [place], [place] AETNA MEDICARE ADV SELF PAY NO INSURANCE Member Subscriber Plan / Payer (Ef fective for All Dates) Name:Myra Montesinos Member ID:Not on file Relation to Subscriber:Not on file Name:MYRA MONTESINOS Subscriber ID:Not on file Address: [address] [place] [place] [address] Payer ID:Not on file Group ID:Not on file Type:Self Pay Address: [place], [place]
--- OUTSIDE RECORDS SUMMARY | 2024-07-24 20:36 | XMS_ITS | Clinical Summary ---
Author Organization [facility] Address [address] [place] [id number] Care Team Providers Care Data Integrity Consultant Name Role Phone Yash Parker MD Primary Care Provider [phone] Berto Bartholomew MD Unavailable Allergies No known active allergies Medications tadalafiL (CIALIS) 5 mg tabletIndications :Erectile Dysfunction,benig n prostatic hyperplasia with lower urinary tract sx Take 1 tablet (5 mg total) by mouth every morning 1 Active huacpqoicxt-uwc-f agnesium-vitC capsuleIndication s:supplement Take 2 tablet/capsule by mouth 2 (two) times a day Active iyewu-0-iqo-epa-d pa-fish oil 1,050-1,200 mg capsuleIndication s:supplement Take [...] (04/27/2022): Added automatically from request for surgery [id number] Kidney stone 09/20/2021 Overview (09/20/2021): Added automatically from request for surgery [id number] Encounters Date Type Department Care Team Description 04/30/2024 Telephone [facility] [address] [place] [address] Yash Parker MD PA SCOPOLAMINE 04/28/2024 Orders Only [facility] [address] [place] [address] Yash Parker MD from Last 3 Months Immunizations Immunization Administration Dates Next Due Hep A, Adult 12/08/2005,06/09/2005 Hep B Vaccine 12/08/2005,07/18/2005,06/09/2005 Influenza, Quadrivalent, Antoinette l Culture-based MDCK, Antibiotic Free, Intramuscular 12/26/2018 Influenza, Quadrivalent, Rec ombinant, Egg Free, Preservative Free, Intramuscular 12/09/2019 Influenza, Quadrivalent, Spl it, Intramuscular 12/23/2015 Influenza, Quadrivalent, Spl it, Preservative Free, Intramuscular 12/06/2017,12/14/2016,12/24/2014 Influenza, Trivalent, IM (MDV) 12/16/2020,2012 Pneumococcal Conjugate Pcv20 12/13/2022 ZOSTER Recombinant 06/27/2018,04/23/2018 Surgical History Surgery Date Site/Laterality Comments CHOLECYSTECTOMY KIDNEY STONE SURGERY EXTRACORPOREAL SHOCK WAVE LITHOTRIPSY multiple PROSTATE BIOPSY 03/12/2022 - 03/11/2023 APPENDECTOMY 05/02/2023 Medical History Medical History Date Comments Hyperlipidemia Hypertension Kidney stones PONV (postoperative nausea and vomiting) GERD (gastroesophageal reflux disease) Family History Medical History Relation Name Comments Heart disease Father Hypertension Mother Anesthesia problems Neg Hx Relation Name Status Comments Father Mother Social History Tobacco Use Types Packs/Day Years [...] on file 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 Gender Identity Male 06/20/2023 4:08 PM CDT Sexual Orientation Not on file Obstetrics History Last Filed Vital Signs Vital Sign Reading [...] 10/24/2023 11:20 AM CDT Plan of Treatment Health Maintenance Due Date Last Done Comments Hepatitis C Screening 1955 DTaP/Tdap/Td Vaccine (1 - Tdap) 1968 Well Visit 65+ 2022 Covid-19 Vaccine (5 2023-2 5 season) 2023 06/10/2021, 12/31/2020, 06/29/2020, Additional history exists Depression Screening 04/25/2024 04/25/2023 Fall Risk Assessment 06/05/2024 06/06/2023, 04/25/19 24 Influenza Vaccine (Season Ended) 2024 12/16/2020, 12/09/2019, 12/26/2018, Additional history exists Prostate Cancer Screening-PSA 04/14/2026, 10/04/2023, 09/18/2022, Additional history exists Colon Cancer Screening-Colonoscopy 02/11/2028 02/10/2018 Hepatitis B Screening Completed 12/08/2005 , 07/18/2005, 06/09/2005 Colon Cancer Screening-CT Colonography Discontinued 02/10/2018 Colon Cancer Screening-DNA Stool Discontinued 02/11/20 Colon Cancer Screening-FIT Discontinued 02/10/2018 Colon Cancer Screening-Sigmoidoscopy Discontinued 02/10/2018 Zoster Vaccine Completed 06/27/2018, 04/23/2018 Pneumococcal vaccine 65+ Completed 12/13/2022 Procedures Procedure Name Priority Date/Time Associated Diagnosis Comments PSA DIAGNOSTIC Routine 04/14/2024 9:17 AM INTERPRETER AND TRANSLATOR Essential hypertension Mixed hyperlipidemia Elevated prostate specific antigen (PSA) Anemia, unspecified type COLONOSCOPY Routine 02/10/2018 from Last 3 Months or Most Recently Relevant to Health Maintenance Results * (ABNORMAL) PSA diagnostic (04/14/2024 9:17 AM INTERPRETER AND TRANSLATOR) PSA 5.7(H) 0.0 - 4.0 ng/mL [facility] - 01 Comment: Gabbi ECLIA methodology. According to the [place] [employer], Serum PSA should decrease and [...] of malignant disease. Blood 04/14/2024 9:17 AM INTERPRETER AND TRANSLATOR 04/14/2024 Narrative [facility] - 04/15/2024 12:33 PM INTERPRETER AND TRANSLATOR Performed at: [address] [place] [id number] Water Control Supervisor: Arvind Olivier PhD, Phone: [phone] Yash Parker MD LAB BLOOD ORDERABLES Final [...] Please contact Infection Prevention. 11/07/2021 11/07/2021 Insurance [facility] [id number] [facility] AETNA MEDICARE Care Teams Data Integrity Consultant Relationship Specialty Start Date End Date Yash Parker MD PCP - General Internal Medicine 02/11/20 Berto Bartholomew MD Consulting Physician Urology 11/07/21
--- OUTSIDE RECORDS SUMMARY | 2024-07-24 20:36 | XMS_ITS | Clinical Summary ---
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
--- NOTE | 2024-07-24 20:46 | ECG_ITS ---
Test Date: 2024-07-24 20:59:31 Measurements Intervals [place] Rate: 93 P: 7 DC: 199 QRS: 12 QRSD: 94 T: -5 QT: 338 QTc: 422 Interpretive Statements SINUS RHYTHM NONSPECIFIC T-WAVE ABNORMALITY ABNORMAL ECG No previous ECG available for comparison Electronically Signed On 07-25-2024 09:56:00 CDT by uSnil Ge M.D.
[2024-07-24 20:51] VITALS: BP 139/70; PULSE 98; RESP 20; TEMP 36.7; O2SAT 98
[2024-07-24 21:17] LABS: Basophils Absolute Auto 0.1 K/mm3 (0.0-0.1); Basophils Percent Auto 1.2 % (0.2-1.2); Eosinophils Absolute Auto 0.6 K/mm3 (0-0.3); Eosinophils Percent Auto 7.1 % (0-4.4); Hematocrit 36.2 % (42.0-52.0); Hemoglobin 11.4 g/dL (14.0-18.0); Immature Granulocyte Absolute 0.01 K/mm3 (0.00-0.031); Immature Granulocyte Percent A 0.1 % (0-0.5); Lymphocytes Absolute Auto 2.62 K/mm3 (0.9-3.2); Lymphocytes Percent Auto 32.1 % (18.3-44.2); Mean Corpuscular HGB Conc 31.5 g/dl (32-36); Mean Corpuscular Hemoglobin 26.2 pg (26-34); Mean Corpuscular Volume 83.2 fl (80-100); Mean Platelet Volume 9.8 fl (7.4-10.4); Monocytes Absolute Auto 0.7 K/mm3 (0.1-0.6); Monocytes Percent Auto 8.2 % (2.6-8.5); Neutrophils Absolute Auto 4.2 K/mm3 (1.3-6.7); Neutrophils Percent Auto 51.3 % (45.5-73.1); Platelet Count Result 303 k/mm3 (150-375); Red Blood Count 4.35 M/mm3 (4.6-6.20); Red Cell Distribution Width 14.5 % (11.5-14.5); White Blood Count 8.2 K/mm3 (4.5-10.0)
[2024-07-24 21:26] LABS: Alanine Aminotransferase 28 U/L (6-50); Albumin Level 4.1 g/dL (3.5-5.1); Alkaline Phosphatase 69 U/L (38-126); Anion Gap 11 mmol/L (4-12); Aspartate Amino Transferase 32 U/L (17-59); Bilirubin,Total 0.4 mg/dL (0.2-1.3); Blood Urea Nitrogen 26 mg/dL (9-20); Calcium 8.9 mg/dL (8.4-10.2); Carbon Dioxide 21 mmol/L (22-30); Chloride 106 mmol/L (98-107); Estimated CRCL calculation 66 ml/min; Estimated Glomerular Filt Rate > 60; Glucose 138 mg/dL (65-110); Potassium 3.7 mmol/L (3.4-5.0); Sodium 138 mmol/L (137-145)
[2024-07-24 21:27] LABS: Prothrombin Time 13.6 Seconds (11.1-14.7)
[2024-07-24 21:28] LABS: Partial Thromboplastin Time 23.1 Seconds (22.3-36.8)
[2024-07-24] MEDS: PANTOPRAZOLE SODIUM IV 40 MG VIAL 80 MG IV PUSH (21:38)
[2024-07-24] MEDS: METOCLOPRAMIDE HCL INJ 10 MG/2 ML VIAL IV PUSH (21:38)
--- NOTE | 2024-07-24 21:49 | ED.GIBLEED ---
HPI - GI Bleed General Chief complaint: GI Bleed Stated complaint: Vomiting blood after eating ice cream-CP Time Seen by Provider: 07/24/24 21:24 History of Present Illness HPI Narrative: 68-year-old male with a past medical history including longstanding gastroesophageal reflux disease with esophageal webs. He has had dilations most recently in the end of March this year with Dr. Michele. Patient presents to the emergency department today as he is having vomiting of bright red blood. Patient states that he was having difficulty swallowing and trying to take his nightly medications and they were not going down. He tried eating ice cream sandwich which did not agree with him and he started vomiting. Had several episodes of vomiting his food and then started developing bright red blood vomiting. He had 5-6 episodes of this and felt lightheaded but not pass out. He vomited into the toilet. He is complaining of pain in his chest at this time, no present nausea or further vomiting upon arrival. No fever, chills, shortness of breath, difficulty breathing, headache, vision changes, neck pain. He is able swallow right now without any intolerance of secretions. Is taking acid suppressing medications for longstanding GERD. No blood thinner use. No other recent surgeries this year, no history of any cardiothoracic surgeries. Related Data Home Medications Medication Instructions Recorded Confirmed Last Taken Type aspirin 81 mg tablet,delayed 81 mg PO DAILY 02/27/22 07/25/24 04/07/24 History release (Adult Aspirin Regimen) olmesartan 20 mg tablet 20 mg PO DAILY 02/27/22 07/25/24 04/30/23 08:00 History simvastatin 40 mg tablet 40 mg PO DAILY 02/27/22 07/25/24 04/07/24 History tadalafil 5 mg tablet 5 mg PO DAILY PRN ED 02/27/22 07/25/24 04/30/23 19:00 History glucosamine 750 mg-chondroit 100 1 tablet PO BID 03/27/24 07/25/24 04/07/24 History mg-msm-D3 25 qvs-vtzd-hgj bor tablet grape seed extract 100 mg capsule 100 mg PO DAILY 03/27/24 07/25/24 04/07/24 History gfnasuhu-eel-zxsge acid 0.4 1 tablet PO DAILY 03/27/24 07/25/24 04/07/24 History mg-lycopene 300 mcg-lutein 250 mcg tablet (Centrum Silver) omega-3 fatty acids 1,250 mg 1,200 mg PO DAILY 03/27/24 07/25/24 Unknown History capsule cetirizine 10 mg tablet (24Hour 10 mg PO DAILY 07/25/24 07/25/24 Unknown History Allergy) Allergies Allergy/AdvReac Type Severity Reaction Status Date / Time No Known Allergies Allergy Verified 07/24/24 20:35 Review of Systems Review of Systems: As reviewed above in [facility] Past Medical History Medical History (Updated 07/25/24 @ 06:44 by Jesus Valverde MD) Gastroesophageal reflux disease Esophageal ring Lumbar radiculopathy Hyperlipidemia Kidney stones Hypertension Surgical History Surgical History History of laparoscopic appendectomy (05/02/23) History of laparoscopic cholecystectomy Family History Family History Father Hypertension Heart disease Social History Social History (Updated 07/25/24 @ 05:37 by Chasidy Camilo PA-C) Social History: Surrogate medical decision maker: Micaela Jaguar, spouse. Code status: Full code. Smoking status: Never smoker Alcohol intake: never Substance use: never Substance use type: does not use Do You Feel Safe in your Home?: Yes Lack of Transportation: No Lack of Food: Never True Current Housing: I Have Housing Concerned About Future Housing: No Difficulty Paying Gas/Electric Bills: No Difficulty Paying for Meds: No Currently Unemployed: No Education: Master's Degree or Higher Difficulty w/ Childcare or Family Care: No Living arrangements: with family Spiritual care concerns: No Exam Narrative: GENERAL: [Well-appearing, well-nourished, and in no acute distress.] HEAD: [Normocephalic, atraumatic.] EYES: [PERRLA and EOMI.] ENT: Nares clear, no rhinorrhea or epistaxis. Mucous membranes moist. No crepitus around the neck or anterior chest NECK: Supple. CHEST: [Clear to auscultation. No respiratory distress.] HEART: [Regular rate and rhythm]. No murmur heard. [Normal peripheral pulses.] ABDOMEN: [Soft, nondistended], [nontender], [No rigidity or guarding] EXTREMITIES: Normal range of motion. [No edema.] SKIN: Warm, dry, no rash. NEURO: [No focal deficits]. Alert and oriented [x3.] PSYCH: [Normal mood and affect.] Course Vital Signs Vital signs: Vital Signs Temperature 36.7 C 07/24/24 20:51 Pulse Rate 98 07/24/24 20:51 Respiratory Rate 20 07/24/24 20:51 Blood Pressure 139/70 07/24/24 20:51 Pulse Oximetry 98 07/24/24 20:51 Oxygen Delivery Room Air 07/24/24 20:51 Temperature 36.7 C 07/24/24 20:51 Pulse Rate 83 07/25/24 04:00 Respiratory Rate 16 07/25/24 00:31 Blood Pressure 121/67 07/25/24 00:31 Pulse Oximetry 96 07/25/24 00:31 Oxygen Delivery Room Air 07/25/24 04:45 MDM - GI Bleed MDM Narrative Medical decision making narrative: 68-year-old male with a past medical history including longstanding GERD with esophageal web status post dilation in March of this year. Patient presents to the emergency department with several episodes of vomiting food and then vomiting bright red blood afterwards. Patient felt lightheaded and presyncopal but did not lose consciousness. Denies any trauma or injury. He states that he was having difficulty swallowing earlier today and tried to take his nightly medications followed by eating a ice cream sandwich which she vomited up. Vomit initially was clear with food particles and then developed blood. Endorses chest pain at this time but no neck pain, trouble breathing, trouble swallowing, further nausea vomiting. Patient is not any acute distress and has normal vital signs in triage. No tachycardia, fever, hypoxia. He is endorsing pain but no other symptoms at this time. Considerations are for Diane-Cardenas tear, esophageal rupture, Boerhaave syndrome, upper GI bleed from peptic ulcer disease, GERD. Low suspicion any varices. His EGD report was reviewed from this year that showed esophageal ring and gastritis. No evidence of varices or ulcers. Patient was given 80 mg of IV Protonix, 10 mg of IV Reglan, fluid hydration and laboratory studies were ordered including PT, PTT, type and cross, CBC, CMP. EKG and CT chest abdomen pelvis was ordered with contrast. Patient's workup shows no significant leukocytosis, hemoglobin 11.4 and stable from baseline. Normal platelet count. Normal coagulation panel. Electrolytes unremarkable. Elevated BUN of 26 likely from GI bleed her pre renal disease. Normal creatinine. Normal glucose and LFTs. Negative troponin. Chest x-ray shows no acute findings aside from a left upper lobe pneumonia which could be aspirin secondary to all the vomiting but not likely related to the cause of his symptoms. patient started on Rocephin for this. CT scan showed no acute cardiopulmonary disease otherwise, soft tissue density in the distal esophagus consistent with a hematoma which is likely related to patient's symptomatology and could be a Diane-Cardenas tear, endoscopy recommended. No other intra-abdominal process of concern at this time. Discussed the case with the on-call united states attorney Dr. Michele who agreed to see the patient for an endoscopy. Patient is hemodynamically stable at this time and has not had any further vomiting or hematemesis. Medications were ordered for symptom control scheduled and I discussed the case with the hospitalist who accepted the patient to admit to [facility] floor. Patient and family made aware of the plan and agreeable to admission. Medical Records Attestation: I reviewed the patient's medical records. Lab Data Attestation: I reviewed the patient's lab results. 07/25/24 06:13 07/25/24 06:13 Labs: Lab Results 07/24/24 Range/Units 21:09 WBC 8.2 (4.5-10.0) K/mm3 RBC 4.35 L (4.6-6.20) M/mm3 Hgb 11.4 L (14.0-18.0) g/dL Hct 36.2 L (42.0-52.0) % MCV 83.2 (80-100) fl MCH 26.2 (26-34) pg MCHC 31.5 L (32-36) g/dl RDW 14.5 (11.5-14.5) % Plt Count 303 (150-375) k/mm3 MPV 9.8 (7.4-10.4) fl Immature Gran % (Auto) 0.1 (0-0.5) % Neut % (Auto) 51.3 (45.5-73.1) % Lymph % (Auto) 32.1 (18.3-44.2) % [place] % (Auto) 8.2 (2.6-8.5) % Eos % (Auto) 7.1 H (0-4.4) % Baso % (Auto) 1.2 (0.2-1.2) % Lymph # (Auto) 2.62 (0.9-3.2) K/mm3 [place] # (Auto) 0.7 H (0.1-0.6) K/mm3 Eos # (Auto) 0.6 H (0-0.3) K/mm3 Baso # (Auto) 0.1 (0.0-0.1) K/mm3 Abs Immat Gran (auto) 0.01 (0.00-0.031) K/mm3 Absolute Neuts (auto) 4.2 (1.3-6.7) K/mm3 Absolute Nucleated RBC 0.000 (0.0-0.012) K/mm3 Nucleated RBC % 0.0 (0.0-0.2) % PT 13.6 (11.1-14.7) Seconds INR 1.0 APTT 23.1 (22.3-36.8) Seconds Sodium 138 (137-145) mmol/L Potassium 3.7 (3.4-5.0) mmol/L Chloride 106 (98-107) mmol/L Carbon Dioxide 21 L (22-30) mmol/L Anion Gap 11 (4-12) mmol/L BUN 26 H (9-20) mg/dL Creatinine 1.19 (0.7-1.3) mg/dL Estim Creat Clear Calc 66 ml/min Estimated GFR > 60 (59 - ) Glucose 138 H (65-110) mg/dL Calcium 8.9 (8.4-10.2) mg/dL Total Bilirubin 0.4 (0.2-1.3) mg/dL AST 32 (17-59) U/L ALT 28 (6-50) U/L Alkaline Phosphatase 69 (38-126) U/L Troponin I < 0.012 (0.000-0.034) ng/mL Total Protein 7.0 (6.3-8.2) g/dL Albumin 4.1 (3.5-5.1) g/dL Blood Type A Positive Antibody Screen Negative Imaging Data Attestation: I personally reviewed and interpreted this imaging study as follows: My impression: Impressions Chest X-Ray 07/24/24 22:54 IMPRESSION: Left upper lobe pneumonia. Chest/Abdomen/Pelvis CT 07/24/24 23:35 IMPRESSION: CHEST: 1. No acute cardiopulmonary pathology. 2. Minimal atelectatic changes in the lingula. ABDOMEN/PELVIS: 1. Soft tissue density in the distal esophagus which may indicate hematoma. Mass cannot be excluded. Esophagoscopy is advised. 2. Right kidney stones. Bilateral renal cysts with the largest in the left kidney lower pole. 3. No evidence of appendicitis, diverticulitis or intestinal obstruction. 4. Hepatomegaly. Critical Care Time Critical Care Time Critical Care Time: Yes Total Critical Care Time: 35 Discharge Plan Discharge Clinical Impression: Gastrointestinal hemorrhage with hematemesis, Nausea & vomiting, Hematoma of esophagus Patient Disposition: Still a Patient Condition: Guarded Prognosis
[2024-07-24] MEDS: HYDROmorphone HCL INJ (*CRX) 2 MG/ML VIAL 0.5 MG IV PUSH (22:23)
[2024-07-24 22:25] VITALS: BP 143/71; PULSE 93; RESP 18; O2SAT 98
--- OUTSIDE RECORDS SUMMARY | 2024-07-24 22:27 | XMS_ITS | Clinical Summary ---
Author Organization [facility] [place] Address [address] [place] [address] Care Team Providers Care Mill Oiler Name Role Phone Yash Parker MD Primary Care Provider [phone] Berto Bartholomew MD Unavailable Allergies No known active allergies Medications tadalafiL (CIALIS) 5 mg tabletIndications :Erectile Dysfunction,benig n prostatic hyperplasia with lower urinary tract sx Take 1 tablet (5 mg total) by mouth every morning 1 Active gqyjagluiub-jit-e agnesium-vitC capsuleIndication s:supplement Take 2 tablet/capsule by mouth 2 (two) times a day Active llhxn-0-fah-epa-d pa-fish oil 1,050-1,200 mg capsuleIndication s:supplement Take [...] (04/27/2022): Added automatically from request for surgery [id number] Kidney stone 09/20/2021 Overview (09/20/2021): Added automatically from request for surgery [id number] Encounters Date Type Department Care Team Description 04/30/2024 Telephone [facility] [address] [place] [address] Yash Parker MD PA SCOPOLAMINE 04/28/2024 Orders Only [facility] [address] [place] [address] Yash Parker MD from Last [...] on file Legal 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 According to the [place] [employer], Serum PSA should decrease and [...] of malignant disease. Blood 04/14/2024 9:17 AM CUSTOMER SERVICE ATTENDANT 04/14/2024 Narrative [facility] - 04/15/2024 12:33 PM CUSTOMER SERVICE ATTENDANT Performed at: [address] [place] [id number] Foreclosure Clerk: Arvind Olivier PhD, Phone: [phone] Yash Parker MD LAB BLOOD ORDERABLES Final [...] Please contact Infection Prevention. 11/07/2021 11/07/2021 [facility] [id number] [facility] AET[employer] MEDICARE Care Teams Mill Oiler Relationship Specialty Start Date End Date Yash Parker MD PCP - General Internal Medicine 02/11/20 Berto Bartholomew MD Consulting Physician Urology 11/07/21
--- OUTSIDE RECORDS SUMMARY | 2024-07-24 22:27 | XMS_ITS | Clinical Summary ---
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
--- OUTSIDE RECORDS SUMMARY | 2024-07-24 22:27 | XMS_ITS | Referral Summary ---
Author Organization [facility] Address [address] [place] [address] Care Team Providers Care Patient Registrar Name Role Phone Yash Parker MD Primary Care Provider [phone] Berto Bartholomew MD Unavailable Encounters Date Type Department Care Team Description 04/30/2024 Telephone [facility] [address] [place] [address] [place] [address] Yash Parker MD PA SCOPOLAMINE 04/28/2024 Orders Only [facility] [address] [place] [address] Yash Parker MD from Last 3 Months Allergies No known active allergies Medications tadalafiL (CIALIS) 5 mg tabletIndications :Erectile Dysfunction,benig n prostatic hyperplasia with lower urinary tract sx Take 1 tablet (5 mg total) by mouth every morning 1 Active hohyfxfnlut-akp-a agnesium-vitC capsuleIndication s:supplement Take 2 tablet/capsule by mouth 2 (two) times a day Active ufuqi-3-ztz-epa-d pa-fish oil 1,050-1,200 mg capsuleIndication s:supplement Take [...] (04/27/2022): Added automatically from request for surgery [id number] Kidney stone 09/20/2021 Overview (09/20/2021): Added automatically from request for surgery [id number] Immunizations Immunization Administration Dates Next Due Hep [...] on file Legal Sex Male 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 According to the [place] [employer], Serum PSA should decrease and [...] of malignant disease. Blood 04/14/2024 9:17 AM FILM COATER 04/14/2024 Narrative [facility] - 04/15/2024 12:33 PM FILM COATER Performed at: 01 - [facility] [id number] Kiln Setter: Arvind Olivier PhD, Phone: [phone] us Yash Parker MD LAB BLOOD ORDERABLES [...] Infection Prevention. 11/07/2021 11/07/2021 Insurance [employer] MEDICARE [facility] [id number] [facility] MEDICARE AETNA MEDICARE Care Teams Patient Registrar Relationship Specialty Start Date End Date Yash Parker MD PCP - General Internal Medicine 02/11/20 Berto Bartholomew MD Consulting Physician Urology 11/07/21
--- OUTSIDE RECORDS SUMMARY | 2024-07-24 22:28 | XMS_ITS | Clinical Summary ---
Author Organization [facility] Address [address] [facility] [facility] [place] [address] Care Team Providers Care Rib Stiffener And Heel Dipper Name Role Phone Unavailable Primary Care Provider Unavailabl e Source Comments [facility],non-owned Affiliates and Associated Physician Practices is amultiple site organization consisting of ambulatory clinics and hospital sitesin [place], [place], [place] and [place]. This disclosure is being madepursuant to the Care Everywhere program and may not contain all information available regarding this patient. Last updated 17.[facility] Social History Tobacco Use Types Packs/Day Years Used Date Smoking Tobacco: Never Assessed Sex and Gender Information Value Date Recorded Sex Assigned at Not on file Legal Sex Male 6:04 AM SAFETY SPEC Gender Identity Not on file Sexual Orientation [...] [place] Subscriber ID:Not on file Address: [address] [place] [address] Payer ID:Not on file Group ID:Not on file Type:Self Pay Address: [place], [place] AETNA MEDICARE ADV SELF PAY NO INSURANCE Member Subscriber Plan / Payer (Ef fective for All Dates) Name:Myra Montesinos Member ID:Not on file Relation to Subscriber:Not on file Name:MYRA MONTESINOS Subscriber ID:Not on file Address: [address] [place] [address] Payer ID:Not on file Group ID:Not on file Type:Self Pay Address: [place], [place] A[employer]NA MEDICARE ADV SELF PAY NO INSURANCE Member Subscriber Plan / Payer (Ef fective for All Dates) Name:Myra Montesinos Member ID:Not on file Relation to Subscriber:Not on file Name:MYRA MONTESINOS Subscriber ID:Not on file Address: [address] [place] [address] Payer ID:Not on file Group ID:Not on file Type:Self Pay Address: [place], [place]
[2024-07-24 22:50] LABS: Troponin I < 0.012 ng/mL (0.000-0.034)
--- NOTE | 2024-07-24 23:26 | PC.NURSE ---
MD Valverde verbally states no blood cultures need to be drawn prior to administering IV antibiotics.
[2024-07-24 23:32] VITALS: BP 153/77; PULSE 89; RESP 18; O2SAT 97
[2024-07-25] VITALS (13 sets, daily range): BP systolic 97–145; BP diastolic 57–73; PULSE 70–89; RESP 14–32; TEMP 36.2–36.5; O2SAT 95–100
--- NOTE | 2024-07-25 00:25 | P.HP_ITS ---
H&P: HPI History of Present Illness Date/Time: 07/25/24 03:25 Chief Complaint: Vomiting blood. Narrative: This is a very pleasant 68-year-old male with chronic gastroesophageal reflux disease, esophageal ring with history of esophageal dilatation in March 2024, small hiatal hernia, hypertension, hyperlipidemia, and kidney stones who presented to the emergency department for evaluation after he began vomiting blood. Over the last week or so he has once again started to experience mild dysphagia. Last evening he was having difficulties swallowing and getting down his evening medications. He tried to drink water and ate an ice cream sandwich to see if that would help get the medications down but he began vomiting not long thereafter. At some point he felt almost as though he was choking and he began to cough and vomited shortly thereafter. He believes that he may have aspirated during this event and tells me he was feeling lightheaded at that time and he had a brief syncopal episode on the bathroom floor. After he vomited the ingested food, he then had 5 to 6 episodes where he vomited bright red blood. Since that time he has had deep aching pains in the mid to lower chest. He denies exertional chest pain, shortness of breath, melena, and hematochezia. He did not injure himself during the brief syncopal episode. He is not on blood thinners. He has no known history of gastric ulcers and has no history of cardiothoracic surgeries. In the ED: Vital signs on arrival include a blood pressure 139/70, pulse 98, SpO2 98% on room air, respiratory rate 20, temperature 98.0°. Labs are significant for WBC count of 8.2, hemoglobin 11.4 (7.1% eosinophils), hematocrit 36.2%, platelet 303, normal coags, BUN 26, creatinine 1.19. Chest x-ray showed findings of left upper lobe pneumonia however no infiltrates were seen on chest CT. CT of the chest, abdomen, and pelvis showed a soft tissue density in the distal esophagus which may indicate hematoma, right kidney stones, bilateral renal cysts, and hepatomegaly. He was given pantoprazole 80 mg IV, ceftriaxone 1 g, and metoclopramide 10 mg. He is being admitted in this setting for close monitoring and GI consultation. Review of Systems Review of Systems: 12 systems were reviewed and are negativ e except for as per HPI. FORMERLY [facility], [facility] Past Medical History Medical History (Updated 07/25/24 @ 05:39 by Chasidy Camilo PA-C) Gastroesophageal reflux disease Esophageal ring Lumbar radiculopathy Hyperlipidemia Kidney stones Hypertension Surgical History Surgical History History of laparoscopic appendectomy (05/02/23) History of laparoscopic cholecystectomy Family History Family History Father Hypertension Heart disease Social History Social History (Updated 07/25/24 @ 05:37 by Chasidy Camilo PA-C) Social History: Surrogate medical decision maker: Micaela Bamaria l, spouse. Code status: Full code. Smoking status: Never smoker Alcohol intake: never Substance use: never Substance use type: does not use Do You Feel Safe in your Home?: Yes Lack of Transportation: No Lack of Food: Never True Current Housing: I Have Housing Concerned About Future Housing: No Difficulty Paying Gas/Electric Bills: No Difficulty Paying for Meds: No Currently Unemployed: No Education: Master's Degree or Higher Difficulty w/ Childcare or Family Care: No Living arrangements: with family Spiritual care concerns: No Meds Home Medications and Allergies Home Medications Medication Instructions Recorded Confirmed Type aspirin 81 mg tablet,delayed 81 mg PO DAILY 02/27/22 07/25/24 History release (Adult Aspirin Regimen) olmesartan 20 mg tablet 20 mg PO DAILY 02/27/22 07/25/24 History simvastatin 40 mg tablet 40 mg PO DAILY 02/27/22 07/25/24 History tadalafil 5 mg tablet 5 mg PO DAILY PRN ED 02/27/22 07/25/24 History azelastine 137 mcg (0.1 %) nasal See Rx Instructions .Route 07/19/22 07/25/24 Rx spray .COMPLEX #30 mL glucosamine 750 mg-chondroit 100 1 tablet PO BID 03/27/24 07/25/24 History mg-msm-D3 25 tag-qyba-vej bor tablet grape seed extract 100 mg capsule 100 mg PO DAILY 03/27/24 07/25/24 History hgqwyrqq-azg-cnmcp acid 0.4 1 tablet PO DAILY 03/27/24 07/25/24 History mg-lycopene 300 mcg-lutein 250 mcg tablet (Centrum Silver) omega-3 fatty acids 1,250 mg 1,200 mg PO DAILY 03/27/24 07/25/24 History capsule pantoprazole 40 mg tablet,delayed 40 mg PO QAM #30 tabs 04/08/24 07/25/24 Rx release cetirizine 10 mg tablet (24Hour 10 mg PO DAILY 07/25/24 07/25/24 History Allergy) Allergies Allergy/AdvReac Type Severity Reaction Status Date / Time No Known Allergies Allergy Verified 07/24/24 20:35 Vital Signs Vital Signs - 24 hr 07/24/24 20:51 07/24/24 22:25 07/24/24 23:32 Temperature 98.0 F Pulse Rate 98 93 89 Respiratory Rate 20 18 18 Blood Pressure 139/70 143/71 H 153/77 H Pulse Oximetry 98 98 97 Oxygen Delivery Room Air Exam Narrative: General: Well-developed, nontoxic-appearing male in the semi-Lau position in bed. Weight: Weight 108.3 kg. BMI: 35.3. HEENT: PERRL, EOMI. Sclera anicteric. Tacky mucous membranes. Neck: Supple. Respiratory: Lungs are clear to auscultation bilaterally. Cardiovascular: Regular rate and rhythm with S1-S2. Gastrointestinal: Abdomen is soft, protuberant, nontender, and nondistended with positive bowel sounds. Skin: Warm and dry. No rash or lesions on limited exam. Extremities: No cyanosis, clubbing, or edema. Radial and pedal pulses intact. Neurological: Alert. Cranial nerves 2-12 are grossly intact. No gross focal deficits to casual conversation. Psychiatric: Pleasant and cooperative with normal mood and affect. Judgment and insight intact. H&P: Results Labs Labs: Short CBC 07/24/24 Range/Units 21:09 WBC 8.2 (4.5-10.0) K/mm3 Hgb 11.4 L (14.0-18.0) g/dL Hct 36.2 L (42.0-52.0) % Plt Count 303 (150-375) k/mm3 BMP 07/24/24 21:09 Sodium 138 Potassium 3.7 Chloride 106 Carbon Dioxide 21 L BUN 26 H Creatinine 1.19 Glucose 138 H Calcium 8.9 Cardiac Enzymes 07/24/24 Range/Units 21:09 Troponin I < 0.012 (0.000-0.034) ng/mL Liver Function 07/24/24 Range/Units 21:09 Total Bilirubin 0.4 (0.2-1.3) mg/dL AST 32 (17-59) U/L ALT 28 (6-50) U/L Alkaline Phosphatase 69 (38-126) U/L Albumin 4.1 (3.5-5.1) g/dL Imaging Chest X-Ray 07/24/24 22:54 IMPRESSION: 1. Left upper lobe pneumonia. Chest/Abdomen/Pelvis CT 07/24/24 23:35 IMPRESSION: CHEST: 1. No acute cardiopulmonary pathology. 2. Minimal atelectatic changes in the lingula. ABDOMEN/PELVIS: 1. Soft tissue density in the distal esophagus which may indicate hematoma. Mass cannot be excluded. Esophagoscopy is advised. 2. Right kidney stones. Bilateral renal cysts with the largest in the left kidney lower pole. 3. No evidence of appendicitis, diverticulitis or intestinal obstruction. 4. Hepatomegaly. Assessment and Plan Assessment and plan (1) Hematemesis: Code(s): K92.0 - Hematemesis Status: Acute (2) Dysphagia: Code(s): R13.10 - Dysphagia, unspecified Status: Acute (3) Esophageal abnormality: Code(s): K22.9 - Disease of esophagus, unspecified Status: Acute (4) Syncope: Code(s): R55 - Syncope and collapse Status: Acute (5) Gastroesophageal reflux disease: Code(s): K21.9 - Gastro-esophageal reflux disease without esophagitis Status: Acute Plan The patient presented to the emergency department for evaluation after he began vomiting blood after having difficulty swallowing his evening medications as detailed in HPI. Labs, imaging, EKG, and all reports were personally reviewed. Hematemesis is likely related to a Diane-Cardenas tear though there findings of possible mass or hematoma in the distal esophagus on CT scan. He will be NPO after midnight for endoscopy tomorrow per Dr. Strong. Analgesics and antiemetics are available as needed. Repeat hemoglobin and hematocrit this evening to ensure it is stable. Continue pantoprazole. He had a brief loss of consciousness while in the bathroom, likely due to cough syncope. Vital signs have been stable since arrival. His home medications will be reviewed and resumed as appropriate. Findings and treatment plan were discussed with the patient. Questions were solicited and answered to satisfaction. The patient's medical management will be taken over by the hospitalist team in a.m. Quality VTE Prophylaxis VTE prophylaxis: mechanical ordered If No VTE Prophylaxis Answer both mechanical and pharmacologic: Reason no pharmacologic proph: medical contraindication (hematemesis) Hospitalist MIPS Advance Care Plan I have confirmed that the patient's Advanced Care Plan is present, code status is documented, or surrogate decision maker is listed in patient medical record.: Yes Medication Reconciliation I have utilized all available resources to obtain, update and review the patients current medications (includes all prescriptions, OTC, herbals, cannabis, and nutritional supplements).: Yes
[2024-07-25] MEDS: LACTATED RINGERS 1,000 ML 125 ML IV CONT (01:00)
[2024-07-25 04:24] LABS: Hematocrit 37.2 % (42.0-52.0); Hemoglobin 11.7 g/dL (14.0-18.0)
[2024-07-25 06:21] LABS: Basophils Absolute Auto 0.1 K/mm3 (0.0-0.1); Basophils Percent Auto 0.7 % (0.2-1.2); Eosinophils Absolute Auto 0.6 K/mm3 (0-0.3); Hematocrit 35.9 % (42.0-52.0); Hemoglobin 10.9 g/dL (14.0-18.0); Immature Granulocyte Absolute 0.03 K/mm3 (0.00-0.031); Immature Granulocyte Percent A 0.3 % (0-0.5); Mean Corpuscular HGB Conc 30.4 g/dl (32-36); Mean Corpuscular Hemoglobin 26.2 pg (26-34); Mean Corpuscular Volume 86.3 fl (80-100); Mean Platelet Volume 10.1 fl (7.4-10.4); Monocytes Absolute Auto 0.9 K/mm3 (0.1-0.6); Monocytes Percent Auto 7.6 % (2.6-8.5); Neutrophils Absolute Auto 7.3 K/mm3 (1.3-6.7); Neutrophils Percent Auto 64.4 % (45.5-73.1); Platelet Count Result 277 k/mm3 (150-375); Red Blood Count 4.16 M/mm3 (4.6-6.20); Red Cell Distribution Width 14.6 % (11.5-14.5); White Blood Count 11.4 K/mm3 (4.5-10.0)
[2024-07-25 06:33] LABS: Anion Gap 9 mmol/L (4-12); Blood Urea Nitrogen 21 mg/dL (9-20); Calcium 8.4 mg/dL (8.4-10.2); Carbon Dioxide 22 mmol/L (22-30); Chloride 106 mmol/L (98-107); Estimated CRCL calculation 87 ml/min; Estimated Glomerular Filt Rate > 60; Glucose 109 mg/dL (65-110); Potassium 3.9 mmol/L (3.4-5.0); Sodium 137 mmol/L (137-145)
--- OUTSIDE RECORDS SUMMARY | 2024-07-25 07:24 | XMS_ITS | CONTINUITY OF CARE DOCUMENT ---
Author Name raimundo eubanks Address Unknown Organization [facility] Address [address] [address] [place] [address] Phone [phone] Care Team Providers Care Supervisor Incising Name Role Phone Kelly LUNDBERG, Yohan Unavailable ISAI SOLORIO MD Unavailable ISAI SOLORIO MD Unavailable [phone] INSURANCE PROVIDERS Payer name Policy type / Coverage type Sen[employer] red republican ID [id number] OPEN ACCESS Other [id number]
[2024-07-25] MEDS: PANTOPRAZOLE SODIUM IV 40 MG VIAL IV PUSH ×2 (08:41→21:34)
--- NOTE | 2024-07-25 10:57 | PC.NURSE ---
Patient to GI lab per wheelchair 07/25/24 [id number].
[2024-07-25 11:09] LABS: Hematocrit 37.8 % (42.0-52.0); Hemoglobin 11.6 g/dL (14.0-18.0)
[2024-07-25] MEDS: LACTATED RINGERS 1,000 ML 150 ML IV CONT (11:11)
--- NOTE | 2024-07-25 11:31 | WPDANESEPPF ---
Anes - Initial Pre Proc Eval Procedure: Operation Date: 07/25/24 15:30 Proposed Procedures p Esophagogastroduodenoscopy - Tim Strong MD Date/Time: 07/25/24 11:31 Surgeon: Mercedes Rosas MD Pre Op Diagnosis: Hematemesis, Diane-Cardenas, pneumonia Patient Data Age: 68 Gender: M Height: 1.75 m Weight: 108.3 kg Last Vital Signs Temp 36.4 C 07/25/24 11:09 Pulse 78 07/25/24 11:09 Resp 16 07/25/24 11:09 BP 143/66 H 07/25/24 11:09 Pulse Ox 99 07/25/24 11:09 O2 Del Method Room Air 07/25/24 11:09 Allergies Allergy/AdvReac Type Severity Reaction Status Date / Time No Known Allergies Allergy Verified 07/24/24 20:35 Home Medications Medication Instructions Recorded Confirmed Type aspirin 81 mg tablet,delayed 81 mg PO DAILY 02/27/22 07/25/24 History release (Adult Aspirin Regimen) olmesartan 20 mg tablet 20 mg PO DAILY 02/27/22 07/25/24 History simvastatin 40 mg tablet 40 mg PO DAILY 02/27/22 07/25/24 History tadalafil 5 mg tablet 5 mg PO DAILY PRN ED 02/27/22 07/25/24 History azelastine 137 mcg (0.1 %) nasal See Rx Instructions .Route 07/19/22 07/25/24 Rx spray .COMPLEX #30 mL glucosamine 750 mg-chondroit 100 1 tablet PO BID 03/27/24 07/25/24 History mg-msm-D3 25 hqn-mmun-cbq bor tablet grape seed extract 100 mg capsule 100 mg PO DAILY 03/27/24 07/25/24 History letygcat-vyy-pkljc acid 0.4 1 tablet PO DAILY 03/27/24 07/25/24 History mg-lycopene 300 mcg-lutein 250 mcg tablet (Centrum Silver) omega-3 fatty acids 1,250 mg 1,200 mg PO DAILY 03/27/24 07/25/24 History capsule pantoprazole 40 mg tablet,delayed 40 mg PO QAM #30 tabs 04/08/24 07/25/24 Rx release cetirizine 10 mg tablet (24Hour 10 mg PO DAILY 07/25/24 07/25/24 History Allergy) Laboratory Tests 07/24/24 07/25/24 07/25/24 21:09 01:48 06:13 WBC 8.2 K/mm3 11.4 H K/mm3 (4.5-10.0) (4.5-10.0) RBC 4.35 L M/mm3 4.16 L M/mm3 (4.6-6.20) (4.6-6.20) Hgb 11.4 L g/dL 11.7 L g/dL 10.9 L g/dL (14.0-18.0) (14.0-18.0) (14.0-18.0) Hct 36.2 L % 37.2 L % 35.9 L % (42.0-52.0) (42.0-52.0) (42.0-52.0) MCV 83.2 fl 86.3 fl (80-100) (80-100) MCH 26.2 pg 26.2 pg (26-34) (26-34) MCHC 31.5 L g/dl 30.4 L g/dl (32-36) (32-36) RDW 14.5 % 14.6 H % (11.5-14.5) (11.5-14.5) Plt Count 303 k/mm3 277 k/mm3 (150-375) (150-375) MPV 9.8 fl 10.1 fl (7.4-10.4) (7.4-10.4) Immature Gran % (Auto) 0.1 % 0.3 % (0-0.5) (0-0.5) Neut % (Auto) 51.3 % 64.4 % (45.5-73.1) (45.5-73.1) Lymph % (Auto) 32.1 % 22.0 % (18.3-44.2) (18.3-44.2) Merrick % (Auto) 8.2 % 7.6 % (2.6-8.5) (2.6-8.5) Eos % (Auto) 7.1 H % 5.0 H % (0-4.4) (0-4.4) Baso % (Auto) 1.2 % 0.7 % (0.2-1.2) (0.2-1.2) Lymph # (Auto) 2.62 K/mm3 2.50 K/mm3 (0.9-3.2) (0.9-3.2) Merrick # (Auto) 0.7 H K/mm3 0.9 H K/mm3 (0.1-0.6) (0.1-0.6) Eos # (Auto) 0.6 H K/mm3 0.6 H K/mm3 (0-0.3) (0-0.3) Baso # (Auto) 0.1 K/mm3 0.1 K/mm3 (0.0-0.1) (0.0-0.1) Abs Immat Gran (auto) 0.01 K/mm3 0.03 K/mm3 (0.00-0.031) (0.00-0.031) Absolute Neuts (auto) 4.2 K/mm3 7.3 H K/mm3 (1.3-6.7) (1.3-6.7) Absolute Nucleated RBC 0.000 K/mm3 0.000 K/mm3 (0.0-0.012) (0.0-0.012) Nucleated RBC % 0.0 % 0.0 % (0.0-0.2) (0.0-0.2) PT 13.6 Seconds (11.1-14.7) INR 1.0 APTT 23.1 Seconds (22.3-36.8) Sodium 138 mmol/L 137 mmol/L (137-145) (137-145) Potassium 3.7 mmol/L 3.9 mmol/L (3.4-5.0) (3.4-5.0) Chloride 106 mmol/L 106 mmol/L (98-107) (98-107) Carbon Dioxide 21 L mmol/L 22 mmol/L (22-30) (22-30) Anion Gap 11 mmol/L 9 mmol/L (4-12) (4-12) BUN 26 H mg/dL 21 H mg/dL (9-20) (9-20) Creatinine 1.19 mg/dL 0.89 mg/dL (0.7-1.3) (0.7-1.3) Estim Creat Clear Calc 66 ml/min 87 ml/min Estimated GFR > 60 > 60 (59 - ) (59 - ) Glucose 138 H mg/dL 109 mg/dL (65-110) (65-110) Calcium 8.9 mg/dL 8.4 mg/dL (8.4-10.2) (8.4-10.2) Total Bilirubin 0.4 mg/dL (0.2-1.3) AST 32 U/L (17-59) ALT 28 U/L (6-50) Alkaline Phosphatase 69 U/L (38-126) Troponin I < 0.012 ng/mL (0.000-0.034) Total Protein 7.0 g/dL (6.3-8.2) Albumin 4.1 g/dL (3.5-5.1) Blood Type A Positive Antibody Screen Negative 07/25/24 10:48 WBC RBC Hgb 11.6 L g/dL (14.0-18.0) Hct 37.8 L % (42.0-52.0) MCV MCH MCHC RDW Plt Count MPV Immature Gran % (Auto) Neut % (Auto) Lymph % (Auto) Merrick % (Auto) Eos % (Auto) Baso % (Auto) Lymph # (Auto) Merrick # (Auto) Eos # (Auto) Baso # (Auto) Abs Immat Gran (auto) Absolute Neuts (auto) Absolute Nucleated RBC Nucleated RBC % PT INR APTT Sodium Potassium Chloride Carbon Dioxide Anion Gap BUN Creatinine Estim Creat Clear Calc Estimated GFR Glucose Calcium Total Bilirubin AST ALT Alkaline Phosphatase Troponin I Total Protein Albumin Blood Type Antibody Screen Patient hx anesthesia problems: post op nausea/vomiting Family hx anesthesia problems: none Results Review: All pre-operative results and documents have been reviewed as part of the pre-operative evaluation. [facility] Past Medical History Medical History Gastroesophageal reflux disease Esophageal ring Lumbar radiculopathy Hyperlipidemia Kidney stones Hypertension Surgical History Surgical History History of laparoscopic appendectomy (05/02/23) History of laparoscopic cholecystectomy Family History Family History Father Hypertension Heart disease Social History Social History Social History: Surrogate medical decision maker: Micaela Montesinos, spouse. Code status: Full code. Smoking status: Never smoker Alcohol intake: never Substance use: never Substance use type: does not use Do You Feel Safe in your Home?: Yes Lack of Transportation: No Lack of Food: Never True Current Housing: I Have Housing Concerned About Future Housing: No Difficulty Paying Gas/Electric Bills: No Difficulty Paying for Meds: No Currently Unemployed: No Education: Master's Degree or Higher Difficulty w/ Childcare or Family Care: No Living arrangements: with family Spiritual care concerns: No Anes - Eval Final PreProcedure Day of Procedure 07/25/24 11:31 Patient weight: obese Heart: regular rate and rhythm Lungs: clear to auscultation Airway: Mallampati scale class II Neurological: alert and oriented Last oral intake: >/= 8 hours ASA classification: III Emergent: no Anesthetic plan: proceed Anesthesia type and monitoring: general GIVS and standard monitoring Results Review: All pre-operative results and documents have been reviewed as part of the pre-operative evaluation. Informed Consent: The patient's anesthetic plan and its attendant risks and benefits were discussed with the patient/family/POA. Questions were solicited and answers provided to the satisfaction of the patient/family/POA.
--- NOTE | 2024-07-25 11:58 | P.CONGI_ITS ---
Assessment and Plan Assessment and plan (1) Gastrointestinal hemorrhage with hematemesis: Code(s): K92.0 - Hematemesis Status: Acute Assessment and Plan: will proceed with urgent EGD wonder if he could have diane graham tear given history and presentation ct scan showed hematoma at esophagus but no perforation iv protonix more recommendations after egd (2) Nausea & vomiting: Code(s): R11.2 - Nausea with vomiting, unspecified Status: Acute Assessment and Plan: antiemetics, he is more comfortable and no more pain (3) Diane-Graham tear: Code(s): K22.6 - Gastro-esophageal laceration-hemorrhage syndrome Status: Acute Assessment and Plan: most likely diagnosis egd now (4) Hematoma of esophagus: Code(s): S27.812A - Contusion of esophagus (thoracic part), initial encounter Status: Acute (5) Syncope: Code(s): R55 - Syncope and collapse Status: Acute Assessment and Plan: resolved probably vasovagal when he was vomiting monitor (6) Esophageal ring: Code(s): K22.2 - Esophageal obstruction Status: Acute GI Consult Note Consult date/time: 07/25/24 11:58 Reason for consult: hematemesis HPI: Neo Montesinos is a 68 year old male chronic gastroesophageal reflux disease, esophageal ring with history of esophageal dilatation in March 2024 up to 16.5mm CRE ballon, small hiatal hernia, hypertension, hyperlipidemia, and kidney stones who presented to the emergency department after new onset of vomiting blood. He noted progressive dysphagia last week until last night harder time after took his medications and did not go down, then tried to drink water and ate an ice cream sandwich to see if that would help get the medications down but he started with forceful vomiting and had brief syncopal episode. After he vomited the ingested food, he then had 5 episodes of bright red blood with moderate discomfort in chest/epigastric area. ER labs WBC count of 8.2, hemoglobin 11.4, platelet 303, normal coags, BUN 26, creatinine 1.19. Chest x- ray showed findings of left upper lobe pneumonia however no infiltrates were seen on chest CT. CT of the chest, abdomen, and pelvis showed a soft tissue density in the distal esophagus which may indicate hematoma. He is more comfortable now and npo status, received iv protonix. Review of Systems 2 Constitutional: Constitutional: Denies chills Eyes: Eyes: Denies blurry vision ENT: Reports Normal hearing present Cardiovascular: Cardiovascular: Reports chest pain Respiratory: Respiratory: Reports cough Gastrointestinal: Gastrointestinal: Reports abdominal pain and Reports hematemesis Genitourinary: Genitourinary: Denies dysuria Musculoskeletal: Musculoskeletal: Denies neck pain Integumentary/Breasts: Skin/Breast: Denies rash Neurologic: Denies Abnormal speech present Psychiatric: Psychiatric: Denies behavioral changes [facility] Past Medical History Medical History (Updated 07/25/24 @ 16:24 by Tim Strong MD) Diane-Graham tear Gastroesophageal reflux disease Esophageal ring Lumbar radiculopathy Hyperlipidemia Kidney stones Hypertension Surgical History Surgical History History of laparoscopic appendectomy (05/02/23) History of laparoscopic cholecystectomy Family History Family History Father Hypertension Heart disease Social History Social History Social History: Surrogate medical decision maker: Micaela Bamaria l, spouse. Code status: Full code. Smoking status: Never smoker Alcohol intake: never Substance use: never Substance use type: does not use Do You Feel Safe in your Home?: Yes Lack of Transportation: No Lack of Food: Never True Current Housing: I Have Housing Concerned About Future Housing: No Difficulty Paying Gas/Electric Bills: No Difficulty Paying for Meds: No Currently Unemployed: No Education: Master's Degree or Higher Difficulty w/ Childcare or Family Care: No Living arrangements: with family Spiritual care concerns: No Meds Home Medications and Allergies Home Medications Medication Instructions Recorded Confirmed Type aspirin 81 mg tablet,delayed 81 mg PO DAILY 02/27/22 07/25/24 History release (Adult Aspirin Regimen) olmesartan 20 mg tablet 20 mg PO DAILY 02/27/22 07/25/24 History simvastatin 40 mg tablet 40 mg PO DAILY 02/27/22 07/25/24 History tadalafil 5 mg tablet 5 mg PO DAILY PRN ED 02/27/22 07/25/24 History azelastine 137 mcg (0.1 %) nasal See Rx Instructions .Route 07/19/22 07/25/24 Rx spray .COMPLEX #30 mL glucosamine 750 mg-chondroit 100 1 tablet PO BID 03/27/24 07/25/24 History mg-msm-D3 25 gbk-kikh-ovh bor tablet grape seed extract 100 mg capsule 100 mg PO DAILY 03/27/24 07/25/24 History qgbkwzjx-lje-zjfig acid 0.4 1 tablet PO DAILY 03/27/24 07/25/24 History mg-lycopene 300 mcg-lutein 250 mcg tablet (Centrum Silver) omega-3 fatty acids 1,250 mg 1,200 mg PO DAILY 03/27/24 07/25/24 History capsule pantoprazole 40 mg tablet,delayed 40 mg PO QAM #30 tabs 04/08/24 07/25/24 Rx release cetirizine 10 mg tablet (24Hour 10 mg PO DAILY 07/25/24 07/25/24 History Allergy) Allergies Allergy/AdvReac Type Severity Reaction Status Date / Time No Known Allergies Allergy Verified 07/24/24 20:35 Vital Signs Vital Signs - 24 hr 07/24/24 20:51 07/24/24 22:25 07/24/24 23:32 Temperature 98.0 F Pulse Rate 98 93 89 Respiratory Rate 20 18 18 Blood Pressure 139/70 143/71 H 153/77 H Pulse Oximetry 98 98 97 Oxygen Delivery Room Air 07/25/24 00:16 07/25/24 00:31 07/25/24 04:00 Temperature Pulse Rate 89 88 83 Respiratory Rate 14 16 Blood Pressure 137/70 121/67 Pulse Oximetry 96 96 Oxygen Delivery 07/25/24 04:45 07/25/24 07:00 07/25/24 08:04 Temperature 97.7 F Pulse Rate 80 79 Respiratory Rate 16 Blood Pressure 145/65 H Pulse Oximetry 95 Oxygen Delivery Room Air 07/25/24 08:43 07/25/24 11:09 Temperature 97.6 F Pulse Rate 78 Respiratory Rate 16 Blood Pressure 143/66 H Pulse Oximetry 99 Oxygen Delivery Room Air Room Air Exam 2 Const: General: comfortable and no acute distress HENMT: Face/Nose/Sinus: Normal nares present Eyes: General: appearance normal, both eyes and all related structures S clera: sclerae normal Neck: Neck: supple Resp: Effort & Inspection: normal respiratory effort Auscultation: clear to auscultation bilaterally Cardio: Rate: regular rate Rhythm: regular rhythm GI: Inspection: non-distended GI Palp: Yes Soft to palpation and No Guarding due to palpation present (GI) Auscultation: normal bowel sounds Skin: General skin exam: normal color and no rashes or lesions noted W ounds: no wounds Neuro: General: gait normal Motor exam (neuro): Normal motor muscle tone present throughout Sensory Exam: normal sensation Extrem: General: normal to inspection Psych: Mental Status: mental status grossly normal Affect: normal affect Results Labs 07/25/24 10:48 07/25/24 06:13 Labs: Short CBC 07/24/24 07/25/24 07/25/24 Range/Units 21:09 01:48 06:13 WBC 8.2 11.4 H (4.5-10.0) K/mm3 Hgb 11.4 L 11.7 L 10.9 L (14.0-18.0) g/dL Hct 36.2 L 37.2 L 35.9 L (42.0-52.0) % Plt Count 303 277 (150-375) k/mm3 07/25/24 Range/Units 10:48 WBC (4.5-10.0) K/mm3 Hgb 11.6 L (14.0-18.0) g/dL Hct 37.8 L (42.0-52.0) % Plt Count (150-375) k/mm3 BMP 07/24/24 07/25/24 21:09 06:13 Sodium 138 137 Potassium 3.7 3.9 Chloride 106 106 Carbon Dioxide 21 L 22 BUN 26 H 21 H Creatinine 1.19 0.89 Glucose 138 H 109 Calcium 8.9 8.4 Cardiac Enzymes 07/24/24 Range/Units 21:09 Troponin I < 0.012 (0.000-0.034) ng/mL Liver Function 07/24/24 Range/Units 21:09 Total Bilirubin 0.4 (0.2-1.3) mg/dL AST 32 (17-59) U/L ALT 28 (6-50) U/L Alkaline Phosphatase 69 (38-126) U/L Albumin 4.1 (3.5-5.1) g/dL
[2024-07-25] MEDS: OLMESARTAN MEDOXOMIL 20 MG TABLET PO (12:45)
[2024-07-25] MEDS: LORATADINE 10 MG TABLET PO (12:46)
--- NOTE | 2024-07-25 12:50 | PC.NURSE ---
Pt returned from GI lab per stretcher 07/25/24 [id number].
--- NOTE | 2024-07-25 16:09 | P.PNIM_ITS ---
Progress Note: A&P Assessment and Plan (1) Hematemesis: Code(s): K92.0 - Hematemesis Status: Acute Assessment and Plan: Likely related to a Diane-Cardenas tear though there findings of possible mass or hematoma in the distal esophagus on CT scan. Underwent endoscopy via GI and was noted to have a tear somewhere in his esophagus, pending GI note. Analgesics and antiemetics are available as needed. H&H remain stable, to trend in the AM. Continue pantoprazole. (2) Dysphagia: Code(s): R13.10 - Dysphagia, unspecified Status: Acute Assessment and Plan: Tolerating full liquid diet, pending GI note and recs for further outpt management (3) Esophageal abnormality: Code(s): K22.9 - Disease of esophagus, unspecified Status: Acute Assessment and Plan: Pending GI note, tear reported to me by pt (4) Syncope: Code(s): R55 - Syncope and collapse Status: Acute Assessment and Plan: EKG in ED NSR, will continue to monitor. Likely cough syncopal episodes (5) Gastroesophageal reflux disease: Code(s): K21.9 - Gastro-esophageal reflux disease without esophagitis Status: Acute Assessment and Plan: Continue pantoprazole Subjective Date/time seen: 07/25/24 1355 Interval history: Patient is a 68-year-old male with chronic GERD, esophageal ring with a history of esophageal dilation most recently in March 2024, small hiatal hernia, hypertension, hyperlipidemia, and kidney stones who presents to the emergency department on 07/24 for hematemesis that started after he ingested his nightly medication. Per patient patient had multiple episodes. Patient also has an extensive history of mild dysphagia which is chronic. In the ED: Vital signs on arrival include a blood pressure 139/70, pulse 98, SpO2 98% on room air, respiratory rate 20, temperature 98.0°. Labs are significant for WBC count of 8.2, hemoglobin 11.4 (7.1% eosinophils), hematocrit 36.2%, platelet 303, normal coags, BUN 26, creatinine 1.19. Chest x-ray showed findings of left upper lobe pneumonia however no infiltrates were seen on chest CT. CT of the chest, abdomen, and pelvis showed a soft tissue density in the distal esophagus which may indicate hematoma, right kidney stones, bilateral renal cysts, and hepatomegaly. He was given pantoprazole 80 mg IV, ceftriaxone 1 g, and metoclopramide 10 mg. He is being admitted in this setting for close monitoring and GI consultation. Upon admission, patient underwent endoscopy via GI and was noted to have a tear somewhere in his esophagus, pending GI note. Patient to continue full liquid diet. Patient has been hemodynamically stable since procedure. Patient ambulatory in room upon assessment. H&H also stable. Review of Systems Review of Systems: 12 systems were reviewed and are negativ e except for as per HPI. Exam Const: General: comfortable and no acute distress HENMT: Ears: TM's normal bilaterally Face/Nose/Sinus: Normal nares present Eyes: General: appearance normal, both eyes and all related structures Sclera: sclerae normal Neck: Neck: supple Resp: Effort & Inspection: normal respiratory effort Auscultation: clear to auscultation bilaterally Cardio: Rate: regular rate Rhythm: regular rhythm GI: Inspection: non-distended Auscultation: normal bowel sounds Other: protuberant, no TTP Skin: General skin exam: normal color and no rashes or lesions noted Wounds: no wounds Neuro: General: gait normal Speech: normal speech Motor exam (neuro): Normal motor muscle tone present throughout Sensory Exam: normal sensation Extrem: General: normal to inspection Psych: Mental Status: mental status grossly normal Affect: normal affect Objective Data Vital Signs Vital Signs: Vital Signs - 24 hr 07/24/24 20:51 07/24/24 22:25 07/24/24 23:32 Temperature 98.0 F Pulse Rate 98 93 89 Respiratory Rate 20 18 18 Blood Pressure 139/70 143/71 H 153/77 H Pulse Oximetry 98 98 97 Oxygen Delivery Room Air 07/25/24 00:16 07/25/24 00:31 07/25/24 04:00 Temperature Pulse Rate 89 88 83 Respiratory Rate 14 16 Blood Pressure 137/70 121/67 Pulse Oximetry 96 96 Oxygen Delivery 07/25/24 04:45 07/25/24 07:00 07/25/24 08:04 Temperature 97.7 F Pulse Rate 80 79 Respiratory Rate 16 Blood Pressure 145/65 H Pulse Oximetry 95 Oxygen Delivery Room Air 07/25/24 08:43 07/25/24 11:09 07/25/24 12:05 Temperature 97.6 F Pulse Rate 78 72 Respiratory Rate 16 Blood Pressure 143/66 H Pulse Oximetry 99 Oxygen Delivery Room Air Room Air 07/25/24 12:07 07/25/24 12:17 07/25/24 12:27 Temperature Pulse Rate 74 72 70 Respiratory Rate 32 H 25 H 18 Blood Pressure 97/57 L 113/65 106/63 Pulse Oximetry 99 99 100 Oxygen Delivery Room Air Room Air Room Air 07/25/24 13:01 Temperature 97.7 F Pulse Rate 75 Respiratory Rate 18 Blood Pressure 136/70 Pulse Oximetry 99 Oxygen Delivery Intake/Output Intake/Output: Intake & Output 07/22/24 07/23/24 07/24/24 07/25/24 23:59 23:59 23:59 23:59 Intake Total 50 640 Balance 50 640 Meds/Results Medications: Active Medications Generic Name Dose Route Start Last Admin Trade Name Freq PRN Reason Stop Dose Admin Azelastine HCl 1 spray 07/25/24 21:00 Azelastine Hcl Nasal 0.1% 137 Mcg/Spr 30 Ml Btl NASAL [facility] Loratadine 10 mg 07/25/24 09:00 07/25/24 12:46 Loratadine 10 Mg Tablet PO 10 mg QAM [facility] Administration Olmesartan 20 mg 07/25/24 09:00 07/25/24 12:45 Olmesartan Medoxomil 20 Mg Tablet PO 20 mg DAILY [facility] Administration Pantoprazole Sodium 40 mg 07/25/24 09:00 07/25/24 08:41 Pantoprazole Sodium Iv 40 Mg Vial IV PUSH 40 mg Q12HR OZZY Administration Simvastatin 40 mg 07/25/24 21:00 Simvastatin 20 Mg Tablet PO [facility] Sucralfate 1,000 mg 07/25/24 16:30 Sucralfate Susp 100 Mg/Ml 10 Ml Udc PO ACHS [facility] Radiology Results: ITS Impressions Chest X-Ray 07/24/24 22:54 IMPRESSION: Left upper lobe pneumonia. Chest/Abdomen/Pelvis CT 07/24/24 23:35 IMPRESSION: CHEST: 1. No acute cardiopulmonary pathology. 2. Minimal atelectatic changes in the lingula. ABDOMEN/PELVIS: 1. Soft tissue density in the distal esophagus which may indicate hematoma. Mass cannot be excluded. Esophagoscopy is advised. 2. Right kidney stones. Bilateral renal cysts with the largest in the left kidney lower pole. 3. No evidence of appendicitis, diverticulitis or intestinal obstruction. 4. Hepatomegaly. Labs Labs: Laboratory Results - last 24 hr 07/24/24 07/25/24 07/25/24 21:09 01:48 06:13 WBC 8.2 11.4 H RBC 4.35 L 4.16 L Hgb 11.4 L 11.7 L 10.9 L Hct 36.2 L 37.2 L 35.9 L MCV 83.2 86.3 MCH 26.2 26.2 MCHC 31.5 L 30.4 L RDW 14.5 14.6 H Plt Count 303 277 MPV 9.8 10.1 Immature Gran % (Auto) 0.1 0.3 Neut % (Auto) 51.3 64.4 Lymph % (Auto) 32.1 22.0 [place] % (Auto) 8.2 7.6 Eos % (Auto) 7.1 H 5.0 H Baso % (Auto) 1.2 0.7 Lymph # (Auto) 2.62 2.50 [place] # (Auto) 0.7 H 0.9 H Eos # (Auto) 0.6 H 0.6 H Baso # (Auto) 0.1 0.1 Abs Immat Gran (auto) 0.01 0.03 Absolute Neuts (auto) 4.2 7.3 H Absolute Nucleated RBC 0.000 0.000 Nucleated RBC % 0.0 0.0 PT 13.6 INR 1.0 APTT 23.1 Sodium 138 137 Potassium 3.7 3.9 Chloride 106 106 Carbon Dioxide 21 L 22 Anion Gap 11 9 BUN 26 H 21 H Creatinine 1.19 0.89 Estim Creat Clear Calc 66 87 Estimated GFR > 60 > 60 Glucose 138 H 109 Calcium 8.9 8.4 Total Bilirubin 0.4 AST 32 ALT 28 Alkaline Phosphatase 69 Troponin I < 0.012 Total Protein 7.0 Albumin 4.1 Blood Type A Positive Antibody Screen Negative 07/25/24 10:48 WBC RBC Hgb 11.6 L Hct 37.8 L MCV MCH MCHC RDW Plt Count MPV Immature Gran % (Auto) Neut % (Auto) Lymph % (Auto) [place] % (Auto) Eos % (Auto) Baso % (Auto) Lymph # (Auto) [place] # (Auto) Eos # (Auto) Baso # (Auto) Abs Immat Gran (auto) Absolute Neuts (auto) Absolute Nucleated RBC Nucleated RBC % PT INR APTT Sodium Potassium Chloride Carbon Dioxide Anion Gap BUN Creatinine Estim Creat Clear Calc Estimated GFR Glucose Calcium Total Bilirubin AST ALT Alkaline Phosphatase Troponin I Total Protein Albumin Blood Type Antibody Screen Quality VTE Prophylaxis VTE prophylaxis: mechanical ordered
[2024-07-25] MEDS: SUCRALFATE SUSP 100 MG/ML 10 ML UDC 1000 MG PO ×2 (16:26→21:35)
[2024-07-25] MEDS: SIMVASTATIN 20 MG TABLET 40 MG PO (21:34)
[2024-07-26 06:26] VITALS: BP 144/76; PULSE 77; RESP 18; TEMP 36.5; O2SAT 97
[2024-07-26] MEDS: SUCRALFATE SUSP 100 MG/ML 10 ML UDC 1000 MG PO (06:29)
[2024-07-26] MEDS: LORATADINE 10 MG TABLET PO (08:09)
[2024-07-26] MEDS: OLMESARTAN MEDOXOMIL 20 MG TABLET PO (08:09)
[2024-07-26] MEDS: PANTOPRAZOLE SODIUM IV 40 MG VIAL IV PUSH (08:09)
--- NOTE | 2024-07-26 11:06 | PM.DS ---
DS: Admitting Diagnosis Discharge Date 07/26/2024 Admitting Diagnosis GI bleed DS: Discharge Diagnosis Discharge Diagnosis (1) Hematemesis: Code(s): K92.0 - Hematemesis Status: Acute Assessment and Plan: Underwent endoscopy via GI and was noted to have a large Diane-Cardenas tear which is now controlled. Analgesics and antiemetics are available as needed. H&H remains stable. No issues overnight. Continue pantoprazole. Spoke to GI on the phone today, pt able to be D/C. No need to f/u with their team, but his outpt GI team as scheduled. (2) Dysphagia: Code(s): R13.10 - Dysphagia, unspecified Status: Acute Assessment and Plan: Tolerating regular diet (3) Esophageal abnormality: Code(s): K22.9 - Disease of esophagus, unspecified Status: Acute Assessment and Plan: Per GI phone call, pt with a large Diane-Cardenas tear which is now controlled. No need for repeat scope, to f/u with established outpt GI (4) Syncope: Code(s): R55 - Syncope and collapse Status: Acute Assessment and Plan: EKG in ED NSR, will continue to monitor. Likely cough syncopal episodes. No repeat sx, pt states that he is feeling well. (5) Gastroesophageal reflux disease: Code(s): K21.9 - Gastro-esophageal reflux disease without esophagitis Status: Acute Assessment and Plan: Continue pantoprazole here and at home (is on baseline) DS: Summary Hospital Course Reason for hospitalization: GI bleed Hospital Course: Patient is a 68-year-old male with chronic GERD, esophageal ring with a history of esophageal dilation most recently in March 2024, small hiatal hernia, hypertension, hyperlipidemia, and kidney stones who presents to the emergency department on 07/24 for hematemesis that started after he ingested his nightly medication. Per patient patient had multiple episodes. Patient also has an extensive history of mild dysphagia which is chronic. In the ED: Vital signs on arrival include a blood pressure 139/70, pulse 98, SpO2 98% on room air, respiratory rate 20, temperature 98.0°. Labs are significant for WBC count of 8.2, hemoglobin 11.4 (7.1% eosinophils), hematocrit 36.2%, platelet 303, normal coags, BUN 26, creatinine 1.19. Chest x-ray showed findings of left upper lobe pneumonia however no infiltrates were seen on chest CT. CT of the chest, abdomen, and pelvis showed a soft tissue density in the distal esophagus which may indicate hematoma, right kidney stones, bilateral renal cysts, and hepatomegaly. He was given pantoprazole 80 mg IV, ceftriaxone 1 g, and metoclopramide 10 mg. He is being admitted in this setting for close monitoring and GI consultation. Upon admission, patient underwent endoscopy via GI and was noted to have a large Diane-Cardenas tear which is now controlled. Patient to continue regular diet. Patient has been hemodynamically stable since procedure. Patient ambulatory in room upon assessment. H&H also stable and pt denies any more hematemesis or dysphasic episodes. Spoke with GI on the phone today and they are agreeable with plan for discharge. GI okay with patient follow-up with outpatient GI on a routine basis. Status at Discharge Cognitive/behavioral status at discharge: Stable. Time Spent with Patient Time attestation: Total time spent providing and/or coordinating discharge services: Exam Const: General: comfortable and no acute distress HENMT: Ears: TM's normal bilaterally Face/Nose/Sinus: Normal nares present Eyes: General: appearance normal, both eyes and all related structures Sclera: sclerae normal Neck: Neck: supple Resp: Effort & Inspection: normal respiratory effort Auscultation: clear to auscultation bilaterally Cardio: Rate: regular rate Rhythm: regular rhythm GI: Inspection: non-distended Auscultation: normal bowel sounds Other: protuberant, no TTP Skin: General skin exam: normal color and no rashes or lesions noted Wounds: no wounds Neuro: General: gait normal Speech: normal speech Motor exam (neuro): Normal motor muscle tone present throughout Sensory Exam: normal sensation Extrem: General: normal to inspection Psych: Mental Status: mental status grossly normal Affect: normal affect DS: Data Data Completed and Pending Completed studies during hospitalization: CXR, abd/pelvis CT Labs on day of discharge: Labs from last 24 hours 07/25/24 10:48 Hgb 11.6 L Hct 37.8 L Procedures/Treatments: Endoscopy Discharge Plan Discharge Attending physician on discharge: Joyce Mahajan Consulting providers: Tim Strong Discharging Clinician: Joyce Mahajan Anticipated Discharge Date/Time: 07/26/24 14:00 Patient Disposition: Home Activity: may shower and as tolerated Diet: as tolerated and heart healthy Discharge Instructions: 1. Follow-up with your outpatient GI and primary care team on a routine basis 2. If you have any more spitting up/vomiting blood or issues swallowing, report back to the ER [facility] Patient Instructions: Antibiotic Form, Diane-Cardenas Syndrome (GEN) Patient Language: Danish Stand Alone Forms: General Discharge Information Follow-up/Referrals: Rich,Yash Sarmiento MD [Primary Care Provider] - Keep Reg. Scheduled Appt. Discharge Medications: Continued olmesartan 20 mg tablet 20 mg PO DAILY tadalafil 5 mg tablet 5 mg PO DAILY PRN (Reason: ED) simvastatin 40 mg tablet 40 mg PO DAILY aspirin [Adult Aspirin Regimen] 81 mg tablet,delayed release (DR/EC) 81 mg PO DAILY wkew-kopos-azo-D3-hyal-mikey bor 750 mg-100 mg- 25 mcg tablet 1 tablet PO BID omega-3 fatty acids 1,250 mg capsule 1,200 mg PO DAILY grape seed extract 100 mg capsule 100 mg PO DAILY Centrum Silver 0.4 mg-300 mcg- 250 mcg tablet 1 tablet PO DAILY cetirizine [24Hour Allergy] 10 mg tablet 10 mg PO DAILY azelastine 137 mcg (0.1 %) aerosol,spray See Rx Instructions .ROUTE .COMPLEX Qty: 30 3RF Dose Instruction: USE 1 SPRAY IN EACH NOSTRIL EVERY 12 HOURS Rx Instructions: USE 1 SPRAY IN EACH NOSTRIL EVERY 12 HOURS pantoprazole 40 mg tablet,delayed release (DR/EC) 40 mg PO QAM Qty: 30 5RF Date of admission: 07/25/24 06:55 Primary Care Provider: RichYash Admitting Provider: Mercedes Rosas Attending physician on admission: Mercedes Rosas Condition: Stable Quality VTE Prophylaxis VTE prophylaxis: mechanical ordered Hospitalist MIPS Heart Failure (Exclusion) Patient has history of Heart Transplant or Left Ventricular Assistive Device?: No IF YES, STOP HERE Heart Failure (Qualifier) Patient has current or prior documentation of LVEF less than or equal to 40%, or mod/servere depressed LVSF?: No IF NO, STOP HERE
--- NOTE | 2024-07-26 13:31 | WPDGIPROGNO ---
Progress Note: A&P Assessment and Plan (1) Diane-Cardenas tear: Code(s): K22.6 - Gastro-esophageal laceration-hemorrhage syndrome Status: Acute Assessment and Plan: Patient with a large Diane-Cardenas tear, hemodynamically stable and not having melena. He can be safely discharged, there is no need for medication except for pantoprazole which he takes on a chronic basis for GERD. No need for repeating endoscopy either. Subjective Date/time seen: 07/26/24 13:31 Objective Data Vital Signs Vital Signs: Vital Signs - 24 hr 07/25/24 20:00 07/25/24 20:40 07/25/24 21:32 Temperature 97.2 F L Pulse Rate 81 Respiratory Rate 18 Blood Pressure 130/73 Pulse Oximetry 98 98 Oxygen Delivery Room Air Room Air Fraction of Inspired Oxygen 21 07/26/24 06:26 07/26/24 08:10 Temperature 97.7 F Pulse Rate 77 Respiratory Rate 18 Blood Pressure 144/76 H Pulse Oximetry 97 Oxygen Delivery Room Air Fraction of Inspired Oxygen Intake/Output Intake/Output: Intake & Output 07/23/24 07/24/24 07/25/24 07/26/24 23:59 23:59 23:59 23:59 Intake Total 50 1240 460 Balance 50 1240 460 Meds/Results Medications: Active Medications Generic Name Dose Route Start Last Admin Trade Name Freq PRN Reason Stop Dose Admin Azelastine HCl 1 spray 07/25/24 21:00 07/25/24 21:53 Azelastine Hcl Nasal 0.1% 137 Mcg/Spr 30 Ml Btl NASAL Not Given HS OZZY Loratadine 10 mg 07/25/24 09:00 07/26/24 08:09 Loratadine 10 Mg Tablet PO 10 mg QAM [facility] Administration Olmesartan 20 mg 07/25/24 09:00 07/26/24 08:09 Olmesartan Medoxomil 20 Mg Tablet PO 20 mg DAILY [facility] Administration Pantoprazole Sodium 40 mg 07/25/24 09:00 07/26/24 08:09 Pantoprazole Sodium Iv 40 Mg Vial IV PUSH 40 mg Q12HR OZZY Administration Simvastatin 40 mg 07/25/24 21:00 07/25/24 21:34 Simvastatin 20 Mg Tablet PO 40 mg HS OZZY Administration Sucralfate 1,000 mg 07/25/24 16:30 07/26/24 06:29 Sucralfate Susp 100 Mg/Ml 10 Ml Udc PO 1,000 mg ACHS OZZY Administration Radiology Results: ITS Impressions Chest X-Ray 07/24/24 22:54 IMPRESSION: Left upper lobe pneumonia. Chest/Abdomen/Pelvis CT 07/24/24 23:35 IMPRESSION: CHEST: 1. No acute cardiopulmonary pathology. 2. Minimal atelectatic changes in the lingula. ABDOMEN/PELVIS: 1. Soft tissue density in the distal esophagus which may indicate hematoma. Mass cannot be excluded. Esophagoscopy is advised. 2. Right kidney stones. Bilateral renal cysts with the largest in the left kidney lower pole. 3. No evidence of appendicitis, diverticulitis or intestinal obstruction. 4. Hepatomegaly.
== END 2024-07-26 12:53 | disposition home or self-care (01) ==
LOC: ANHED 07-25 00:29 → ANH3MED 07-25 06:44
PROVIDERS: Emergency Medicine; Internal Medicine Gastroenterology; Physician Assistant; Admitting Provider Internal Medicine; Emergency Provider Student in an Organized Health Care Education/Training Program; PCP Internal Medicine
PROC: 0DJ08ZZ Inspection of Upper Intestinal Tract, Via Natural or Artificial Opening Endoscopic (ICD-10-PCS; CPT 43235; principal; 2024-07-25 15:30)
DX: K22.6 Gastro-esophageal laceration-hemorrhage syndrome (principal); K44.9 Diaphragmatic hernia without obstruction or gangrene; K21.00 Gastro-esophageal reflux disease with esophagitis, without bleeding; S27.812A Contusion of esophagus (thoracic part), initial encounter; K22.2 Esophageal obstruction; R13.19 Other dysphagia; R55 Syncope and collapse; E78.5 Hyperlipidemia, unspecified; I10 Essential (primary) hypertension; M54.16 Radiculopathy, lumbar region; E66.9 Obesity, unspecified; Z68.35 Body mass index [BMI] 35.0-35.9, adult; Z79.82 Long term (current) use of aspirin; Z79.899 Other long term (current) drug therapy; Z87.442 Personal history of urinary calculi; Z90.49 Acquired absence of other specified parts of digestive tract
CPT/HCPCS: 43235; 36415; 71045; 71260; 74177; 80048; 80053; 84484; 85014; 85018; 85025; 85610; 85730; 86850; 86900; 86901; 93005; 96365; 96375; 99285; A9270; G0378; J0696; J1171; J2470; J2704; J2765; J7120; Q9967

== ENCOUNTER 2024-11-07 01:09 | Day surgery (SDC) | payer MEDICARE, SELFPAY ==
[2024-10-24 11:16] VITALS: BMI 35.4
[2024-11-07 11:43] VITALS: BP 117/82; PULSE 86; RESP 18; TEMP 36.6; O2SAT 97; BMI 33.5
--- NOTE | 2024-11-07 11:51 | WPDANESEPPF ---
Anes - Initial Pre Proc Eval Procedure: Operation Date: 11/07/24 13:00 Proposed Procedures p Esophagogastroduodenoscopy - Tim Strong MD s Diagnostic Colonoscopy - Tim Strong MD Date/Time: 11/07/24 11:51 Surgeon: Tim Strong MD Pre Op Diagnosis: Gastro-esophageal laceration-hemorrhage syndrome Patient Data Age: 69 Gender: M Height: 1.75 m Weight: 103.1 kg Last Vital Signs Temp 36.6 C 11/07/24 11:43 Pulse 86 11/07/24 11:43 Resp 18 11/07/24 11:43 BP 117/82 11/07/24 11:43 Pulse Ox 97 11/07/24 11:43 O2 Del Method Room Air 11/07/24 11:43 Allergies Allergy/AdvReac Type Severity Reaction Status Date / Time No Known Allergies Allergy Verified 11/07/24 11:42 Home Medications ?Medication ?Instructions ?Recorded ?Confirmed ?Type aspirin 81 mg tablet,delayed 81 mg PO DAILY 02/27/22 11/07/24 History release (Adult Aspirin Regimen) olmesartan 20 mg tablet 20 mg PO DAILY 02/27/22 11/07/24 History simvastatin 40 mg tablet 40 mg PO DAILY 02/27/22 11/07/24 History tadalafil 5 mg tablet 5 mg PO DAILY PRN ED 02/27/22 10/24/24 History azelastine 137 mcg (0.1 %) nasal See Rx Instructions .Route 07/19/22 11/07/24 Rx spray .COMPLEX #30 mL glucosamine 750 mg-chondroit 100 1 tablet PO BID 03/27/24 11/07/24 History mg-msm-D3 25 qhc-mhim-bby bor tablet grape seed extract 100 mg capsule 100 mg PO DAILY 03/27/24 11/07/24 History zkjcvrkv-oku-pkoeo acid 0.4 1 tablet PO DAILY 03/27/24 10/24/24 History mg-lycopene 300 mcg-lutein 250 mcg tablet (Centrum Silver) omega-3 fatty acids 1,250 mg 1,200 mg PO DAILY 03/27/24 11/07/24 History capsule cetirizine 10 mg tablet (24Hour 10 mg PO DAILY 07/25/24 11/07/24 History Allergy) pantoprazole 40 mg tablet,delayed 40 mg PO QAM #30 tabs 10/21/24 11/07/24 Rx release potassium citrate 10 mEq (1,080 10 meq PO DAILY 10/24/24 11/07/24 History mg) tablet,extended release Patient hx anesthesia problems: none Family hx anesthesia problems: none Results Review: All pre-operative results and documents have been reviewed as part of the pre-operative evaluation. [facility] Past Medical History Medical History (Updated 11/07/24 @ 07:25 by Maynor Layton DO) ELLIOT (obstructive sleep apnea) Diane-Cardenas tear Gastroesophageal reflux disease Esophageal ring Lumbar radiculopathy Hyperlipidemia Kidney stones Hypertension Surgical History Surgical History History of laparoscopic appendectomy (05/02/23) History of laparoscopic cholecystectomy Family History Family History Father Hypertension Heart disease Social History Social History Social History: Surrogate medical decision maker: Micaela Montesinos, spouse. Code status: Full code. Smoking status: Never smoker Alcohol intake: never Substance use: never Substance use type: does not use Do You Feel Safe in your Home?: Yes Lack of Transportation: No Lack of Food: Never True Current Housing: I Have Housing Concerned About Future Housing: No Difficulty Paying Gas/Electric Bills: No Difficulty Paying for Meds: No Currently Unemployed: No Education: Master's Degree or Higher Difficulty w/ Childcare or Family Care: No Living arrangements: with family Spiritual care concerns: No Anes - Eval Final PreProcedure Day of Procedure 11/07/24 11:51 Patient weight: obese Heart: regular rate and rhythm Lungs: clear to auscultation Airway: Mallampati scale class II Neurological: alert and oriented Last oral intake: >/= 8 hours ASA classification: III Emergent: no Anesthetic plan: proceed Anesthesia type and monitoring: general GIVS and standard monitoring Results Review: All pre-operative results and documents have been reviewed as part of the pre-operative evaluation. Informed Consent: The patient's anesthetic plan and its attendant risks and benefits were discussed with the patient/family/POA. Questions were solicited and answers provided to the satisfaction of the patient/family/POA.
[2024-11-07] MEDS: LACTATED RINGERS 1,000 ML 150 ML IV CONT (11:54)
--- NOTE | 2024-11-07 12:38 | PM.HPGS ---
History of Present Illness History of Present Illness Consent: Risks, benefits, and alternatives have been discussed and questions answered. Patient agrees to proceed with procedure. Chief complaint: Gastro-esophageal laceration-hemorrhage syndrome Narrative: Neo Montesinos is a 69 year old male with large MW tear, doing well now, no more gerd and normal swallowing. Also anemia, denies overt gib, last colonoscopy years ago. Review of Systems Review of Systems: All systems reviewed & are unremarkable except as noted in HPI and below PMFSH Past Medical History Medical History (Updated 11/07/24 @ 07:25 by Maynor Layton, ) ELLIOT (obstructive sleep apnea) Diane-Cardenas tear Gastroesophageal reflux disease Esophageal ring Lumbar radiculopathy Hyperlipidemia Kidney stones Hypertension Surgical History Surgical History History of laparoscopic appendectomy (05/02/23) History of laparoscopic cholecystectomy Family History Family History Father Hypertension Heart disease Social History Social History Social History: Surrogate medical decision maker: Micaela Montesinos, spouse. Code status: Full code. Smoking status: Never smoker Alcohol intake: never Substance use: never Substance use type: does not use Do You Feel Safe in your Home?: Yes Lack of Transportation: No Lack of Food: Never True Current Housing: I Have Housing Concerned About Future Housing: No Difficulty Paying Gas/Electric Bills: No Difficulty Paying for Meds: No Currently Unemployed: No Education: Master's Degree or Higher Difficulty w/ Childcare or Family Care: No Living arrangements: with family Spiritual care concerns: No Meds Home Medications and Allergies Home Medications ?Medication ?Instructions ?Recorded ?Confirmed ?Type aspirin 81 mg tablet,delayed 81 mg PO DAILY 02/27/22 11/07/24 History release (Adult Aspirin Regimen) olmesartan 20 mg tablet 20 mg PO DAILY 02/27/22 11/07/24 History simvastatin 40 mg tablet 40 mg PO DAILY 02/27/22 11/07/24 History tadalafil 5 mg tablet 5 mg PO DAILY PRN ED 02/27/22 10/24/24 History azelastine 137 mcg (0.1 %) nasal See Rx Instructions .Route 07/19/22 11/07/24 Rx spray .COMPLEX #30 mL glucosamine 750 mg-chondroit 100 1 tablet PO BID 03/27/24 11/07/24 History mg-msm-D3 25 wqz-mrby-kgt bor tablet grape seed extract 100 mg capsule 100 mg PO DAILY 03/27/24 11/07/24 History judffkgi-kda-edejt acid 0.4 1 tablet PO DAILY 03/27/24 10/24/24 History mg-lycopene 300 mcg-lutein 250 mcg tablet (Centrum Silver) omega-3 fatty acids 1,250 mg 1,200 mg PO DAILY 03/27/24 11/07/24 History capsule cetirizine 10 mg tablet (24Hour 10 mg PO DAILY 07/25/24 11/07/24 History Allergy) pantoprazole 40 mg tablet,delayed 40 mg PO QAM #30 tabs 10/21/24 11/07/24 Rx release potassium citrate 10 mEq (1,080 10 meq PO DAILY 10/24/24 11/07/24 History mg) tablet,extended release Allergies Allergy/AdvReac Type Severity Reaction Status Date / Time No Known Allergies Allergy Verified 11/07/24 11:42 Vital Signs Vital Signs - 24 hr 11/07/24 11:43 Temperature 98 F Pulse Rate 86 Respiratory Rate 18 Blood Pressure 117/82 Pulse Oximetry 97 Oxygen Delivery Room Air Exam Const: General: comfortable and no acute distress HENMT: Face/Nose/Sinus: Normal nares present Eyes: General: appearance normal, both eyes and all related structures Neck: Neck: no JVD Resp: Auscultation: clear to auscultation bilaterally Cardio: Rate: regular rate Rhythm: regular rhythm GI: Inspection: non-distended GI Palp: Yes Soft to palpation Skin: General skin exam: normal color Neuro: Speech: normal speech Extrem: General: normal to inspection Psych: Mental Status: mental status grossly normal Assessment and Plan Assessment and plan (1) GERD (gastroesophageal reflux disease): Code(s): K21.9 - Gastro-esophageal reflux disease without esophagitis Status: Acute Assessment and Plan: egd (2) Normocytic anemia: Code(s): D64.9 - Anemia, unspecified Status: Acute Assessment and Plan: colonoscopy
[2024-11-07 12:59] VITALS: BP 97/56; PULSE 72; RESP 22; O2SAT 98
--- NOTE | 2024-11-07 12:59 | S_PTH ---
PATIENT: Neo Montesinos LOC: [facility]#:[id number] AGE/SX: 69/M ROOM: RE11/07/[address]: Tim Strong MD : [id number] BED: DIS: 11/07/2024 SPEC #: [id number] RECD: 11/07/24 13:05 STATUS: PALLAVI REMarino #: [id number] SAW: 11/07/24 12:[address]: Tim Strong DEPT: [facility] Surgical RECD BY: Hannah Beth ENTERED: 11/07/24 13:05 SP TYPE: Surgical OTHR DR: Yash ParkerMD Tissues: A - Colon Polypectomy Procedures: Hematoxylin and Eosin Stain Gross and Microscopic Level 4
--- NOTE | 2024-11-07 13:00 | SUR.OPER ---
EGD START 1242, END 1246 COLONOSCOPY START 1251, END 1258
[2024-11-07 13:09] VITALS: BP 114/42; PULSE 70; RESP 17; O2SAT 100
[2024-11-07 13:19] VITALS: BP 116/67; PULSE 68; RESP 18; O2SAT 100
== END 2024-11-07 13:29 | disposition home or self-care (01) ==
PROVIDERS: PCP Internal Medicine; Visit Provider Internal Medicine Gastroenterology
PROC: 0DJ08ZZ Inspection of Upper Intestinal Tract, Via Natural or Artificial Opening Endoscopic (ICD-10-PCS; CPT 43249; principal; 2024-11-07 13:00)
PROC: 0DJD8ZZ Inspection of Lower Intestinal Tract, Via Natural or Artificial Opening Endoscopic (ICD-10-PCS; CPT 45378; 2024-11-07 13:00)
DX: K21.00 Gastro-esophageal reflux disease with esophagitis, without bleeding (principal); K22.2 Esophageal obstruction; K44.9 Diaphragmatic hernia without obstruction or gangrene; K64.8 Other hemorrhoids; K57.30 Diverticulosis of large intestine without perforation or abscess without bleeding; K63.5 Polyp of colon; D64.9 Anemia, unspecified; E78.5 Hyperlipidemia, unspecified; I10 Essential (primary) hypertension; G47.33 Obstructive sleep apnea (adult) (pediatric); E66.9 Obesity, unspecified; Z68.33 Body mass index [BMI] 33.0-33.9, adult; Z79.82 Long term (current) use of aspirin; Z98.890 Other specified postprocedural states; Z90.49 Acquired absence of other specified parts of digestive tract; Z87.442 Personal history of urinary calculi; Z82.49 Family history of ischemic heart disease and other diseases of the circulatory system
CPT/HCPCS: 43249; 45385; 88305; C1726; J2704; J7120